=== PATIENT | female | born 1965 | race Caucasian/White ===

== ENCOUNTER → 2017-01-04 | Outpatient (CLI) | payer MEDICAID | LOC: MW.CHFP 15:07 | PROVIDERS: ATTEND Family Medicine | DX: R10.9 Unspecified abdominal pain (principal) | CPT/HCPCS: 81001 ==

== ENCOUNTER → 2017-01-05 | Outpatient (CLI) | payer MEDICAID | LOC: MW.CHFP 13:13 | PROVIDERS: ATTEND Family Medicine | DX: N39.0 Urinary tract infection, site not specified (principal) | CPT/HCPCS: 87086 ==

== ENCOUNTER → 2017-01-07 | Outpatient (CLI) | payer MEDICAID | LOC: MW.CHFP 10:03 | PROVIDERS: ATTEND Family Medicine | DX: N39.0 Urinary tract infection, site not specified (principal); A04.8 Other specified bacterial intestinal infections | CPT/HCPCS: 81001 ==

== ENCOUNTER → 2017-01-13 | Outpatient (CLI) | payer MEDICAID | LOC: MW.CHFP 08:06 | PROVIDERS: ATTEND Family Medicine | DX: A04.8 Other specified bacterial intestinal infections (principal) | CPT/HCPCS: 87338 ==

== ENCOUNTER → 2017-02-09 | Outpatient (CLI) | payer MEDICAID ==
--- NOTE | 2017-02-10 11:17 | MY ---
EXAMINATION: Bilateral digital mammography utilizing CAD. HISTORY: Screening exam. Comparison is made to previous studies dated 11/04/2015. FINDINGS: Bilateral heterogeneously dense breast tissue. No suspicious calcifications, masses or architectural distortions. No pathologic appearing lymph nodes, no abnormal skin thickening or nipple inversion. CAD highlighted regions appear normal at this time. IMPRESSION: BI-RADS category I - negative mammogram. Continued screening according to ACR-ACS guidelines sugg ested. THE FALSE-NEGATIVE RATE OF MAMMOGRAM IS APPROXIMATELY 10%. MANAGEMENT OF A PALPABLE ABNORMALITY MUST BE BASED UPON CLINICAL GROUNDS. SENSITIVITY FOR DETECTION OF ABNORMALITIES IN DENSE BREASTS IS LOW. NOTE: A letter will be sent to the patient regarding findings. [facility] [place] [phone] - FAX [phone]
== END | disposition home or self-care (01) ==
LOC: MW.MAM 13:05
PROVIDERS: ATTEND Obstetrics & Gynecology
DX: Z12.31 Encounter for screening mammogram for malignant neoplasm of breast (principal)
CPT/HCPCS: G0202; G0202-26

== ENCOUNTER 2017-04-16 10:07 | Emergency (ER) | payer MEDICAID ==
--- NOTE | 2017-04-16 10:39 | EDM.PDOC ---
ED HPI GENERAL MEDICAL PROBLEM - General Chief Complaint: ENT Problem Stated Complaint: SORE THROAT Time Seen by Provider: 04/16/17 10:30 Source of Information: Reports: Patient History Limitations: Reports: No Limitations - History of Present Illness INITIAL COMMENTS - FREE TEXT/NARRATIVE: History of present illness: []Patient has had 2 days of sore throat comes in complaining of pus pockets and sore throat with right ear pain. She has no difficulty speaking, swallowing or shortness of breath. Review of systems: As per history of present illness and below otherwise all systems reviewed and negative. Past medical history: As per history of present illness and as reviewed below otherwise noncontributory. Surgical history: As per history of present illness and as reviewed below otherwise noncontributory. Social history: No reported history of drug or alcohol abuse. Family history: As per history of present illness and as reviewed below otherwise noncontributory. Physical exam: General: Well developed, well nourished in NAD HEENT: Atraumatic, normocephalic, pupils reactive, negative for conjunctival pallor or scleral icterus, mucous membranes moist, throat mild erythema with small plaque on the left posterior pharynx, neck supple, 1 cm palpable cervical tender lymph node on the left, trachea midline. TMs are clear Lungs: Clear to auscultation, breath sounds equal bilaterally, chest nontender. Heart: S1S2, regular, negative for clicks, rubs, or JVD. Abdomen: Soft, nondistended, nontender. Negative for masses or hepatosplenomegaly. Negative for costovertebral tenderness. Pelvis: Stable nontender. Genitourinary: Deferred. Rectal: Deferred. Extremities: Atraumatic, negative for cords or calf pain. Neurovascular unremarkable. Neuro: Awake, alert, oriented. Cranial nerves II through XII unremarkable. Cerebellum unremarkable. Motor and sensory unremarkable throughout. Exam nonfocal. Diagnostics: []Rapid strep negative Therapeutics: [] Impression: []Acute pharyngitis Plan: []Motrin, Tylenol or salt water gargles for pain follow-up with pediatric return if symptoms worsen or change Definitive disposition and diagnosis as appropriate pending reevaluation and review of above. Throat Pain Score (Numeric/FACES): 10 - Related Data Allergies Allergy/AdvReac Type Severity Reaction Status Date / Time No Known Allergies Allergy Verified 07/12/16 11:29 Home Meds: Home Meds ClonazePAM [KlonoPIN] 3 mg PO BEDTIME 08/11/15 [History] Omeprazole 40 mg PO DAILY 08/11/15 [History] QUEtiapine [SEROquel] 25 mg PO BID 08/11/15 [History] cloNIDine [Catapres] 0.1 mg PO BID 08/11/15 [History] Dextroamphetamine/Amphetamine [Amphetamine Salts] 25 mg PO DAILY 11/18/15 [ History] Oxybutynin [Oxybutynin ER] 2 tab PO TID 07/12/16 [History] valACYclovir [Valtrex] 2 tab PO ASDIRECTED PRN 07/12/16 [History] ALPRAZolam [Xanax] 1 mg PO BID PRN 11/08/16 [History] Cariprazine Hydrochloride [Vraylar] 3 mg PO ASDIRECTED 11/08/16 [History] Vilazodone [Viibryd] 40 mg PO DAILY 11/08/16 [History] Past Medical History HEENT History: Reports: None Cardiovascular History: Reports: Hypertension Gastrointestinal History: Reports: Other (See Below) Other Gastrointestinal History: "gallbladder problems" Genitourinary History: Reports: Other (See Below) Other Genitourinary History: Frequent UTI's, Overactive Bladder [employer] History: Reports: None Musculoskeletal History: Reports: Back Pain, Chronic Neurological History: Reports: None Psychiatric History: Reports: Anxiety, Bipolar, Depression Endocrine/Metabolic History: Reports: None Hematologic History: Reports: None Immunologic History: Reports: None Oncologic (Cancer) History: Reports: None Dermatologic History: Reports: None - Infectious Disease History Infectious Disease History: Reports: Hepatitis C - Past Surgical History Head Surgeries/Procedures: Reports: None HEENT Surgical History: Reports: Oral Surgery Social & Family History - Family History Family Medical History: Noncontributory - Tobacco Use Smoking Status *Q: Former Smoker Years of Tobacco use: 5 Packs/Tins Daily: 0.5 Used Tobacco, but Quit: Yes Month Tobacco Last Used: February Second Hand Smoke Exposure: No - Caffeine Use Caffeine Use: Reports: Coffee - Recreational Drug Use Recreational Drug Use: No Drug Use in Last 12 Months: No Recreational Drug Type: Reports: Methamphetamine Recreational Drug Use Frequency: Not Used In Over 1 Month ED ROS ENT - Review of Systems Review Of Systems: See Below (See history of present illness) ED EXAM, ENT - Physical Exam Exam: See Below (See history of present illness) Course - Vital Signs Last Recorded V/S: Last Vital Signs Temp 36.2 C 04/16/17 10:20 Pulse 99 04/16/17 10:20 Resp 20 04/16/17 10:20 BP 103/68 04/16/17 10:20 Pulse Ox 97 04/16/17 10:20 - Orders/Labs/Meds Orders: Active Orders 24 hr Category Date Time Status CULTURE STREP A CONFIRMATION [] Stat Lab 04/16/17 10:44 Results STREP SCRN A RAPID W CULT CONF [] Stat Lab 04/16/17 10:44 Results Departure - Departure Time of Disposition: 11:08 Disposition: Home, Self-Care 01 Condition: Good Clinical Impression: Acute pharyngitis Qualifiers: Pharyngitis/tonsillitis etiology: unspecified etiology Qualified Code(s): J02.9 - Acute pharyngitis, unspecified - Discharge Information Referrals: Meme Vasquez MD [Primary Care Provider] - Forms: ED Department Discharge Additional Instructions: The following information is given to patients seen in the emergency department who are being discharged to home. This information is to outline your options for follow-up care. We provide all patients seen in our emergency department with a follow-up referral. The need for follow-up, as well as the timing and circumstances, are variable depending upon the specifics of your emergency department visit. If you don't have a primary care physician on staff, we will provide you with a referral. We always advise you to contact your personal physician following an emergency department visit to inform them of the circumstance of the visit and for follow-up with them and/or the need for any referrals to a consulting specialist. The emergency department will also refer you to a specialist when appropriate. This referral assures that you have the opportunity for follow-up care with a specialist. All of these measure are taken in an effort to provide you with optimal care, which includes your follow-up. Under all circumstances we always encourage you to contact your private physician who remains a resource for coordinating your care. When calling for follow-up care, please make the office aware that this follow-up is from your recent emergency room visit. If for any reason you are refused follow-up, please contact the [facility] at and asked to speak to the emergency department charge nurse. Tylenol Motrin or saltwater gargles for pain, follow-up with PMD return if symptoms worsen or change [facility] [address] [place] [id number] - My Orders Last 24 Hours: My Active Orders 04/16/17 10:44 CULTURE STREP A CONFIRMATION [RM] Stat STREP SCRN A RAPID W CULT CONF [RM] Stat - Assessment/Plan Last 24 Hours: My Active Orders 04/16/17 10:44 CULTURE STREP A CONFIRMATION [RM] Stat STREP SCRN A RAPID W CULT CONF [RM] Stat
[2017-04-16 11:25] VITALS: BP 102/63
== END 2017-04-16 11:18 | disposition home or self-care (01) ==
LOC: MW.ED 10:07
DX: J02.9 Acute pharyngitis, unspecified (principal); F41.9 Anxiety disorder, unspecified; F32.9 Major depressive disorder, single episode, unspecified; I10 Essential (primary) hypertension; Z79.899 Other long term (current) drug therapy; Z87.440 Personal history of urinary (tract) infections; Z87.891 Personal history of nicotine dependence
CPT/HCPCS: 87081; 87880; 99282; 99283

== ENCOUNTER 2017-05-05 07:01 | Day surgery (SDC) | payer MEDICAID ==
[~2017-05-05 07:01] MED LIST: Lactated Ringers 1,000 ML IV SCH; Sodium Chloride 0.9% 10 ML Syringe FLUSH PRN; Sodium Chloride 0.9% 2.5 ML Syringe FLUSH PRN; ceFAZolin 2 GM in Premix Bag 1 BAG IV ONE
[2017-05-05] MEDS ORDERED: Fluorescein 5 ML Vial ONE (07:21)
[2017-05-05] MEDS ORDERED: Octyl 2-Cyanoacrylate 1 Tube ONE (07:21)
[2017-05-05] MEDS ORDERED: Lidocaine 2% 5 ML SDV ONE (07:48)
[2017-05-05] MEDS ORDERED: Propofol 200 MG/20 ML SDV ONE ×2 (07:48→10:13)
[2017-05-05] MEDS ORDERED: fentaNYL 100 MCG/2 ML SDV ONE ×2 (07:49→10:19)
[2017-05-05] MEDS ORDERED: Midazolam 1 MG/ML 2 ML SDV ONE (07:49)
[2017-05-05] MEDS ORDERED: Ketorolac 30 MG/ML SDV ONE (07:56)
[2017-05-05] MEDS ORDERED: Neostigmine Methylsulfate 1 MG/ML 5 ML Syringe ONE (07:56)
[2017-05-05] MEDS ORDERED: Rocuronium 10 MG/ML 10 ML Syringe ONE (07:56)
[2017-05-05] MEDS ORDERED: Ondansetron 4 MG/2 ML SDV ONE (07:56)
--- NOTE | 2017-05-05 08:15 | PCM.PREANE ---
Preanesthetic Assessment - Anesthesia/Transfusion/Family Hx Anesthesia History: Prior Anesthesia Without Reaction (for colonoscopy, no prior GA) Family History of Anesthesia Reaction: No Transfusion History: No Prior Transfusion(s) - Review of Systems General: No Symptoms Pulmonary: No Symptoms Cardiovascular: No Symptoms Gastrointestinal: Abdominal Pain Neurological: No Symptoms Other: Reports: None - Physical Assessment NPO Status Date: 05/04/17 O2 Sat by Pulse Oximetry: 98 Respiratory Rate: 18 Vital Signs: Last Vital Signs Temp 36.1 C 05/05/17 07:27 Pulse 87 05/05/17 07:27 Resp 18 05/05/17 07:27 BP 114/69 05/05/17 07:27 Pulse Ox 98 05/05/17 07:27 Height: 1.68 m Weight: 76.204 kg ASA Class: 3 Mental Status: Alert & Oriented x3 Airway Class: Mallampati = 2 Dentition: Reports: Normal Dentition Lungs: Clear to Auscultation, Normal Respiratory Effort Cardiovascular: Regular Rate, Regular Rhythm - Lab Values: Laboratory Last Values WBC 8.09 K/uL (4.0-11.0) 05/04/17 10:19 RBC 4.29 M/uL (4.30-5.90) L 05/04/17 10:19 Hgb 13.0 g/dL (12.0-16.0) 05/04/17 10:19 Hct 38.7 % (36.0-46.0) 05/04/17 10:19 MCV 90.2 fL (80.0-98.0) 05/04/17 10:19 MCH 30.3 pg (27.0-32.0) 05/04/17 10:19 MCHC 33.6 g/dL (31.0-37.0) 05/04/17 10:19 RDW Std Deviation 45.9 fl (28.0-62.0) 05/04/17 10:19 RDW Coeff of Maya 14 % (11.0-15.0) 05/04/17 10:19 Plt Count 321 K/uL (150-400) 05/04/17 10:19 MPV 10.20 fL (7.40-12.00) 05/04/17 10:19 Nucleated RBC % 0.0 /100WBC 05/04/17 10:19 Nucleated RBCs # 0 K/uL 05/04/17 10:19 Sodium 136 mmol/L (136-146) 05/04/17 10:19 Potassium 3.8 mmol/L (3.5-5.1) 05/04/17 10:19 Chloride 103 mmol/L (98-110) 05/04/17 10:19 Carbon Dioxide 25 mmol/L (21-31) 05/04/17 10:19 BUN 12 mg/dL (6.0-23.0) 05/04/17 10:19 Creatinine 1.2 mg/dL (0.6-1.5) 05/04/17 10:19 Est Cr Clr Drug Dosing 52.50 mL/min 05/04/17 10:19 Estimated GFR (MDRD) 47.6 ml/min 05/04/17 10:19 Glucose 101 mg/dL (60-110) 05/04/17 10:19 Calcium 9.7 mg/dL (8.8-10.8) 05/04/17 10:19 HCG, Qual NEGATIVE (NEG) 05/04/17 10:19 Blood Type O NEGATIVE 05/04/17 10:19 Antibody Screen NEGATIVE 05/04/17 10:19 - Allergies Allergies/Adverse Reactions: Allergies Allergy/AdvReac Type Severity Reaction Status Date / Time No Known Allergies Allergy Verified 05/03/17 12:33 - Anesthesia Plan Pre-Op Medication Ordered: None - Acknowledgements Anesthesia Type Planned: General Anesthesia Pt an Appropriate Candidate for the Planned Anesthesia: Yes Alternatives and Risks of Anesthesia Discussed w Pt/Guardian: Yes Pt/Guardian Understands and Agrees with Anesthesia Plan: Yes Additional Comments: pmh: abd pain, adhd, bipolar, gerd, gout, hx of hep C, Meds: vybrid is a serotonin antianxiety med, vrylar is a antipsychotic med also used for bipolar disorder, No drug interactions except interferance with drug metabolism pathways . PreAnesthesia Questionnaire HEENT History: Other HEENT History: has glasses but doesn't wear them Cardiovascular History: Reports: Hypertension Gastrointestinal History: Reports: Hepatitis Other Gastrointestinal History: HX of Hepatitis C....states was treated and no longer has Genitourinary History: Reports: Other (See Below) Other Genitourinary History: Overactive bladder [employer] History: Reports: None Musculoskeletal History: Reports: Gout Neurological History: Reports: None Psychiatric History: Reports: ADD, Anxiety, Depression, PTSD Endocrine/Metabolic History: Reports: None Hematologic History: Reports: None Immunologic History: Reports: None Oncologic (Cancer) History: Reports: None Dermatologic History: Reports: None - Infectious Disease History Infectious Disease History: Reports: Chicken Pox, Hepatitis C, Herpes - Past Surgical History Head Surgeries/Procedures: Reports: None HEENT Surgical History: Reports: Oral Surgery Other HEENT Surgeries/Procedures: wisdom teeth removed GI Surgical History: Reports: Colonoscopy, EGD Musculoskeletal Surgical History: Reports: None - SUBSTANCE USE Smoking Status *Q: Former Smoker Tobacco Use Within Last Twelve Months: No Second Hand Smoke Exposure: No Recreational Drug Use History: No Recreational Drug Type: Reports: Methamphetamine - HOME MEDS Home Medications: Home Meds Omeprazole 40 mg PO DAILY 08/11/15 [History] cloNIDine [Catapres] 0.2 mg PO BID 08/11/15 [History] Oxybutynin [Oxybutynin ER] 10 mg PO TID 07/12/16 [History] valACYclovir [Valtrex] 1 tab PO ASDIRECTED PRN 07/12/16 [History] ALPRAZolam [Xanax] 1 mg PO DAILY 11/08/16 [History] Vilazodone [Viibryd] 40 mg PO DAILY 11/08/16 [History] Allopurinol [Zyloprim] 300 mg PO DAILY 05/03/17 [History] Cholecalciferol (Vitamin D3) [Vitamin D3] 400 unit PO DAILY 05/03/17 [History] ClonazePAM [KlonoPIN] 1 mg PO TID 05/03/17 [History] Dextroamphetamine/Amphetamine [Adderall] 25 mg PO DAILY 05/03/17 [History] Gluc 2KCl/Chondr/Gerardo Hy/Hy Ac [Glucosamine & Chondroitin Cap] 1 cap PO BID 05/12 [History] L.acidoph,Paracasei, B.lactis [Probiotic] 1 cap PO DAILY 05/03/17 [History] Multivitamin [Multiple Vitamins] 1 tab PO DAILY 05/03/17 [History] Topiramate 25 mg PO BID 05/03/17 [History] Vitamin B Complex 1 cap PO DAILY 05/03/17 [History] - CURRENT (IN HOUSE) MEDS Current Meds: Current Medications Lactated Ringer's (Ringers, Lactated) 1,000 mls @ 125 mls/hr IV ASDIRECTED MIRLANDE Last Admin: 05/05/17 07:34 Dose: 125 mls/hr Sodium Chloride (Saline Flush) 10 ml FLUSH ASDIRECTED PRN PRN Reason: Keep Vein Open Sodium Chloride (Saline Flush) 2.5 ml FLUSH ASDIRECTED PRN PRN Reason: Keep Vein Open Discontinued Medications Fentanyl (Sublimaze) Confirm Administered Dose 300 mcg .ROUTE .STK-MED ONE Stop: 05/05/17 07:50 Fluorescein Sodium (Ak-Fluor) Confirm Administered Dose 5 ml .ROUTE .STK-MED ONE Stop: 05/05/17 07:22 Glycopyrrolate () Confirm Administered Dose 1 mg .ROUTE .STK-MED ONE Stop: 05/05/17 07:57 Cefazolin Sodium/Dextrose 2 gm (/ Premix) 50 mls @ 100 mls/hr IV ONETIME ONE Stop: 05/04/17 09:18 Ketorolac Tromethamine (Toradol) Confirm Administered Dose 30 mg .ROUTE .STK- MED ONE Stop: 05/05/17 07:57 Lidocaine (Xylocaine-Mpf 2%) Confirm Administered Dose 10 ml .ROUTE .STK-MED ONE Stop: 05/05/17 07:49 Midazolam HCl (Versed 1 Mg/Ml) Confirm Administered Dose 2 mg .ROUTE .STK-MED ONE Stop: 05/05/17 07:50 Neostigmine Methylsulfate (Neostigmine) Confirm Administered Dose 5 mg .ROUTE .STK-MED ONE Stop: 05/05/17 07:57 Octyl Cyanoacrylate (Dermabond Advance) Confirm Administered Dose 1 applic .ROUTE .STK-MED ONE Stop: 05/05/17 07:22 Ondansetron HCl (Zofran) Confirm Administered Dose 4 mg .ROUTE .STK-MED ONE Stop: 05/05/17 07:57 Propofol (Diprivan 20 Ml) Confirm Administered Dose 400 mg .ROUTE .STK-MED ONE Stop: 05/05/17 07:49 Rocuronium [place] (Zemuron) Confirm Administered Dose 100 mg .ROUTE .STK-MED ONE Stop: 05/05/17 07:57
[2017-05-05] MEDS ORDERED: HYDROmorphone 2 MG/ML Syringe ONE (09:53)
[2017-05-05] MEDS ORDERED: Furosemide 40 MG/4 ML VIAL ONE (10:18)
[2017-05-05] MEDS ORDERED: HYDROmorphone 2 MG/ML Syringe IVPUSH ONE (10:30)
[2017-05-05] MEDS ORDERED: fentaNYL 100 MCG/2 ML SDV IVPUSH PRN (10:30)
[2017-05-05] MEDS ORDERED: Promethazine 25 MG/ML SDV IM PRN (10:52)
[2017-05-05] MEDS ORDERED: Ketorolac 30 MG/ML SDV IVPUSH PRN (10:52)
--- NOTE | 2017-05-05 10:57 | PCM.OPNOTE ---
- General Post-Op/Procedure Note Date of Surgery/Procedure: 05/05/17 Operative Procedure(s): TLH BSO and cysto. Pre Op Diagnosis: Pelvic pain Post-Op Diagnosis: Same Anesthesia Technique: General ET Tube Primary Surgeon: Delbert Poe Liquor Bridge Operator: Marlene Brown EBL in mLs: 50 Complications: None Condition: Good
[2017-05-05] MEDS ORDERED: Naloxone 0.4 MG/ML Syringe ONE ×2 (11:08→11:13)
--- NOTE | 2017-05-05 12:33 | PCM.POSTAN ---
POST ANESTHESIA ASSESSMENT - MENTAL STATUS Mental Status: Alert, Oriented - RESPIRATORY Respiratory Status: Respiratory Rate WNL, Airway Patent, O2 Saturation Stable - CARDIOVASCULAR CV Status: Pulse Rate WNL, Blood Pressure Stable - GASTROINTESTINAL GI Status: No Symptoms - POST OP HYDRATION Hydration Status: Adequate & Stable
[2017-05-05] MEDS: Morphine 4 MG/ML Syringe IVPUSH PRN ×4 (13:00→23:55)
[2017-05-05] MEDS: Ondansetron 4 MG/2 ML SDV IVPUSH PRN ×2 (13:04→20:16)
[2017-05-05] MEDS: Acetaminophen/oxyCODONE 325-5 MG Tab PO PRN ×2 (14:57→19:15)
--- NOTE | 2017-05-05 15:12 | OR ---
SURGEON: Delbert Poe MD DATE OF PROCEDURE: PREOPERATIVE DIAGNOSIS: Pelvic pain. POSTOPERATIVE DIAGNOSIS: Pelvic pain plus pelvic adhesion and fibroid uterus. OPERATION PERFORMED: Multiple puncture, diagnostic laparoscopy, lysis of adhesion, total laparoscopic hysterectomy, laparoscopic bilateral salpingo-oophorectomy, and cystoscopy. FLIGHT PARAMEDIC: KARLA Arenas. ANESTHESIA: General endotracheal intubation, Joseluis Prasad and Dr. An. ESTIMATED BLOOD LOSS: Less than 50 mL. COMPLICATIONS: None. FINDING: The patient has pelvic adhesion between the sigmoid colon and the pelvic sidewall and around the left tubes and ovary. She have multiple fibroid uterus, the largest one was 5 cm which is in the anterior wall. INDICATION: [place] refer to the admit note. PROCEDURE IN DETAIL: The patient was brought to the OR and after adequate general anesthesia and after doing time-out and identifying the patient, the patient was placed in lithotomy position, prepped and draped in sterile fashion as usual. P[place] catheter inserted in the bladder and the [employer] colpotomizer and uterine manipulator was placed and then the operation shifted abdominally. Stab wound done beneath the umbilicus. The Veress needle was placed in the peritoneal cavity and that cavity insufflated 3.5 L of carbon dioxide and a 5-mm trocar entered beneath the umbilicus utilizing the Visiport technique. Once we are in, I explored the abdomen with the laparoscope and made multiple pictures to document the pathology. Next, a 10-12 trocar was placed in the left iliac fossa and 5-mm trocar in the right iliac fossa. The operation was started by using the CHITO-7 Harmonic scalpel and taking down the adhesion from the anterior abdominal wall and the left pelvic sidewall with from the sigmoid colon which was also wrapped around the left ovary restoring normal anatomy. Once these were done, then we proceeded with the hysterectomy and bilateral salpingo- oophorectomy and that started by identifying the landmark of the pelvis and making sure the ureter was away from harm's way. The superior pedicle coagulated, transected with the CHITO-7 Harmonic scalpel from both side and then the anterior leaf of the broad ligament dissected downward medially. The bladder flap was raised pushing the bladder completely away from the cervical, the uterus and at that time, I can feel clearly the ring from the manipulator. The uterine vessel was skeletonized at the level of the internal ring of the manipulator and then this uterine vessel coagulated, transecting using the [place] Harmonic scalpel. Then, the vagina entered anteriorly and in a circular manner, the vaginal cuff incised around the tip of the manipulator detaching the cervix from its attachment to the vagina. Then, the uterus and the cervix removed vaginally. Then, the vaginal pack was placed in the vagina to restore pneumoperitoneum and then thorough irrigation of the pelvis shows no oozing, no bleeding. All the pedicle seems to be fine. Then, I proceeded to close the vaginal cuff laparoscopically using 2-0 PDS interrupted. While we were doing that, we asked the anesthesiologist to give the patient fluorescein and then after closing the vaginal cuff and deflating the abdomen and evacuating all the air from the peritoneal cavity, the Paniagua catheter was removed and cystoscopy was performed. The bladder was intact. Both ureteric orifices were seen with the dye coming from both of them, thus the patency of both ureters verified, satisfied with these findings. The multiple laparoscopic incisions were closed in layers. Then, the procedure ended. The instrument and sponge count was correct. The patient tolerated the procedure well, went to recovery room in stable general condition. SEAN / PILI /[id number]
[2017-05-06 05:28] LABS: CHLORIDE,CL 102 mmol/L (98-110); SODIUM,NA 137 mmol/L (136-146)
[2017-05-06] MEDS: Acetaminophen/oxyCODONE 325-5 MG Tab PO PRN (07:31)
[2017-05-06 07:51] VITALS: BP 126/89
[2017-05-06] MEDS: Ondansetron 4 MG/2 ML SDV IVPUSH PRN (07:52)
--- NOTE | 2017-05-06 09:04 | PCM.SURGPN ---
- General Info Date of Service: 05/06/17 POD#: 1 Functional Status: Reports: Pain Controlled - Review of Systems General: Reports: No Symptoms HEENT: Reports: No Symptoms Pulmonary: Reports: No Symptoms Cardiovascular: Reports: No Symptoms Gastrointestinal: Reports: No Symptoms Genitourinary: Reports: No Symptoms Musculoskeletal: Reports: No Symptoms Skin: Reports: No Symptoms Neurological: Reports: No Symptoms Psychiatric: Reports: No Symptoms - Patient Data Vitals - Most Recent: Last Vital Signs Temp 37.2 C 05/06/17 07:50 Pulse 84 05/06/17 07:50 Resp 19 05/06/17 07:50 BP 126/89 05/06/17 07:50 Pulse Ox 94 L 05/06/17 07:50 Weight - Most Recent: 76.204 kg I&O - Last 24 Hours: Intake & Output 05/05/17 05/06/17 05/06/17 22:59 06:59 14:59 Intake Total 2200 900 Output Total 300 600 Balance 1900 300 Lab Results Last 24 Hrs: Laboratory Results - last 24 hr 05/06/17 05/06/17 Range/Units 04:50 04:50 WBC 14.99 H (4.0-11.0) K/uL RBC 3.84 L (4.30-5.90) M/uL Hgb 11.4 L (12.0-16.0) g/dL Hct 35.4 L (36.0-46.0) % MCV 92.2 (80.0-98.0) fL MCH 29.7 (27.0-32.0) pg MCHC 32.2 (31.0-37.0) g/dL RDW Std Deviation 47.3 (28.0-62.0) fl RDW Coeff of Maya 14 (11.0-15.0) % Plt Count 269 (150-400) K/uL MPV 10.10 (7.40-12.00) fL Neut % (Auto) 80.7 H (48.0-80.0) % Lymph % (Auto) 11.5 L (16.0-40.0) % [place] % (Auto) 7.2 (0.0-15.0) % Eos % (Auto) 0.5 (0.0-7.0) % Baso % (Auto) 0.1 (0.0-1.5) % Neut # (Auto) 12.1 H (1.4-5.7) K/uL Lymph # (Auto) 1.7 (0.6-2.4) K/uL [place] # (Auto) 1.1 H (0.0-0.8) K/uL Eos # (Auto) 0.1 (0.0-0.7) K/uL Baso # (Auto) 0.0 (0.0-0.1) K/uL Nucleated RBC % 0.0 /100WBC Nucleated RBCs # 0 K/uL Sodium 137 (136-146) mmol/L Potassium 4.1 (3.5-5.1) mmol/L Chloride 102 (98-110) mmol/L Carbon Dioxide 28 (21-31) mmol/L BUN 10 (6.0-23.0) mg/dL Creatinine 0.8 (0.6-1.5) mg/dL Est Cr Clr Drug Dosing 78.76 mL/min Estimated GFR (MDRD) > 60.0 ml/min Glucose 103 (60-110) mg/dL Calcium 7.9 L (8.8-10.8) mg/dL Med Orders - Current: Current Medications Fentanyl (Sublimaze) 50 mcg IVPUSH Q5M PRN PRN Reason: Pain (severe 7-10) Stop: 05/06/17 10:30 Last Admin: 05/05/17 12:09 Dose: 50 mcg Lactated Ringer's (Ringers, Lactated) 1,000 mls @ 125 mls/hr IV ASDIRECTED [facility] Last Admin: 05/05/17 07:34 Dose: 125 mls/hr Ketorolac Tromethamine (Toradol) 30 mg IVPUSH Q6H PRN PRN Reason: Pain (severe 7-10) Stop: 05/10/17 10:52 Morphine Sulfate (Morphine) 4 mg IVPUSH Q2H PRN PRN Reason: Pain (severe 7-10) Last Admin: 05/05/17 23:55 Dose: 4 mg Ondansetron HCl (Zofran) 4 mg IVPUSH Q6H PRN PRN Reason: Nausea/Vomiting Last Admin: 05/06/17 07:52 Dose: 4 mg Oxycodone/Acetaminophen (Percocet 325-5 Mg) 2 tab PO Q4H PRN PRN Reason: Pain (moderate 4-6) Last Admin: 05/06/17 07:31 Dose: 2 tab Promethazine HCl (Phenergan) 25 mg IM Q6H PRN PRN Reason: Nausea/Vomiting Sodium Chloride (Saline Flush) 10 ml FLUSH ASDIRECTED PRN PRN Reason: Keep Vein Open Sodium Chloride (Saline Flush) 2.5 ml FLUSH ASDIRECTED PRN PRN Reason: Keep Vein Open Discontinued Medications Fentanyl (Sublimaze) Confirm Administered Dose 300 mcg .ROUTE .STK-MED ONE Stop: 05/05/17 07:50 Fentanyl (Sublimaze) Confirm Administered Dose 100 mcg .ROUTE .STK-MED ONE Stop: 05/05/17 10:20 Fluorescein Sodium (Ak-Fluor) Confirm Administered Dose 5 ml .ROUTE .STK-MED ONE Stop: 05/05/17 07:22 Furosemide (Lasix) Confirm Administered Dose 40 mg .ROUTE .STK-MED ONE Stop: 05/05/17 10:19 Glycopyrrolate () Confirm Administered Dose 1 mg .ROUTE .STK-MED ONE Stop: 05/05/17 07:57 Hydromorphone HCl (Dilaudid) Confirm Administered Dose 2 mg .ROUTE .STK-MED ONE Stop: 05/05/17 09:54 Hydromorphone HCl (Dilaudid) 0 mg IVPUSH ONETIME ONE Stop: 05/05/17 10:31 Last Admin: 05/05/17 13:56 Dose: Not Given Cefazolin Sodium/Dextrose 2 gm (/ Premix) 50 mls @ 100 mls/hr IV ONETIME ONE Stop: 05/04/17 09:18 Last Admin: 05/05/17 13:57 Dose: Not Given Ketorolac Tromethamine (Toradol) Confirm Administered Dose 30 mg .ROUTE .STK- MED ONE Stop: 05/05/17 07:57 Lidocaine (Xylocaine-Mpf 2%) Confirm Administered Dose 10 ml .ROUTE .STK-MED ONE Stop: 05/05/17 07:49 Midazolam HCl (Versed 1 Mg/Ml) Confirm Administered Dose 2 mg .ROUTE .STK-MED ONE Stop: 05/05/17 07:50 Naloxone HCl (Narcan) Confirm Administered Dose 0.4 mg .ROUTE .STK-MED ONE Stop: 05/05/17 11:09 Naloxone HCl (Narcan) Confirm Administered Dose 0.4 mg .ROUTE .STK-MED ONE Stop: 05/05/17 11:14 Neostigmine Methylsulfate (Neostigmine) Confirm Administered Dose 5 mg .ROUTE .STK-MED ONE Stop: 05/05/17 07:57 Octyl Cyanoacrylate (Dermabond Advance) Confirm Administered Dose 1 applic .ROUTE .STK-MED ONE Stop: 05/05/17 07:22 Ondansetron HCl (Zofran) Confirm Administered Dose 4 mg .ROUTE .STK-MED ONE Stop: 05/05/17 07:57 Propofol (Diprivan 20 Ml) Confirm Administered Dose 400 mg .ROUTE .STK-MED ONE Stop: 05/05/17 07:49 Propofol (Diprivan 20 Ml) Confirm Administered Dose 200 mg .ROUTE .STK-MED ONE Stop: 05/05/17 10:14 Rocuronium [place] (Zemuron) Confirm Administered Dose 100 mg .ROUTE .STK-MED ONE Stop: 05/05/17 07:57 - Exam Wound/Incisions: Healing Well General: Alert, Oriented HEENT: Pupils Equal Neck: Supple Lungs: Clear to Auscultation, Normal Respiratory Effort Cardiovascular: Regular Rate, Regular Rhythm GI/Abdominal Exam: Normal Bowel Sounds, Soft, Non-Tender, No Organomegaly, No Distention, No Abnormal Bruit, No Mass, Pelvis Stable Extremities: Normal Inspection, Normal Range of Motion, Non-Tender, No Pedal Edema, Normal Capillary Refill Skin: Warm, Dry, Intact Neurological: No New Focal Deficit Psy/Mental Status: Alert, Normal Affect, Normal Mood - Problem List Review Problem List Initiated/Reviewed/Updated: Yes - My Orders Last 24 Hours: Active Orders 24 hr Category Date Time Status Patient Status [ADT] Routine ADT 05/05/17 10:52 Active Antiembolic Devices [RC] PER UNIT ROUTINE Care 05/05/17 10:52 Active Communication Order [RC] ROUTINE Care 05/05/17 15:20 Active Notify Provider Vital Signs [RC] ASDIRECTED Care 05/05/17 10:52 Active Oxygen Therapy [RC] ASDIRECTED Care 05/05/17 10:52 Active RT Incentive Spirometry [RC] Q2HWA Care 05/05/17 10:52 Active Up With Assistance [RC] PER UNIT ROUTINE Care 05/05/17 10:52 Active Up ad Olesya [RC] PER UNIT ROUTINE Care 05/05/17 10:52 Active Vital Signs [RC] PER UNIT ROUTINE Care 05/05/17 10:52 Active Regular Diet [DIET] Diet 05/05/17 Lunch Active Acetaminophen/oxyCODONE [Percocet 325-5 MG] Med 05/05/17 10:52 Active 2 tab PO Q4H PRN Ketorolac [Toradol] Med 05/05/17 10:52 Active 30 mg IVPUSH Q6H PRN Morphine Med 05/05/17 10:52 Active 4 mg IVPUSH Q2H PRN Ondansetron [Zofran] Med 05/05/17 10:52 Active 4 mg IVPUSH Q6H PRN Promethazine [Phenergan] Med 05/05/17 10:52 Active 25 mg IM Q6H PRN fentaNYL [Sublimaze] Med 05/05/17 10:30 Active 50 mcg IVPUSH Q5M PRN Peripheral IV Discontinue [OM.PC] Routine Oth 05/05/17 10:52 Ordered Sequential Compression Device [OM.PC] Per Unit Routine Oth 05/05/17 10:52 Ordered Resuscitation Status Routine Resus Stat 05/05/17 10:52 Ordered Medication Orders Fentanyl (Sublimaze) 50 mcg IVPUSH Q5M PRN PRN Reason: Pain (severe 7-10) Stop: 05/06/17 10:30 Last Admin: 05/05/17 12:09 Dose: 50 mcg Lactated Ringer's (Ringers, Lactated) 1,000 mls @ 125 mls/hr IV ASDIRECTED [facility] Last Admin: 05/05/17 07:34 Dose: 125 mls/hr Ketorolac Tromethamine (Toradol) 30 mg IVPUSH Q6H PRN PRN Reason: Pain (severe 7-10) Stop: 05/10/17 10:52 Morphine Sulfate (Morphine) 4 mg IVPUSH Q2H PRN PRN Reason: Pain (severe 7-10) Last Admin: 05/05/17 23:55 Dose: 4 mg Admin: 05/05/17 20:19 Dose: 4 mg Admin: 05/05/17 16:14 Dose: 4 mg Admin: 05/05/17 13:00 Dose: 4 mg Ondansetron HCl (Zofran) 4 mg IVPUSH Q6H PRN PRN Reason: Nausea/Vomiting Last Admin: 05/06/17 07:52 Dose: 4 mg Admin: 05/05/17 20:16 Dose: 4 mg Admin: 05/05/17 13:04 Dose: 4 mg Oxycodone/Acetaminophen (Percocet 325-5 Mg) 2 tab PO Q4H PRN PRN Reason: Pain (moderate 4-6) Last Admin: 05/06/17 07:31 Dose: 2 tab Admin: 05/05/17 19:15 Dose: 2 tab Admin: 05/05/17 14:57 Dose: 2 tab Promethazine HCl (Phenergan) 25 mg IM Q6H PRN PRN Reason: Nausea/Vomiting Sodium Chloride (Saline Flush) 10 ml FLUSH ASDIRECTED PRN PRN Reason: Keep Vein Open Sodium Chloride (Saline Flush) 2.5 ml FLUSH ASDIRECTED PRN PRN Reason: Keep Vein Open - Assessment Assessment (Free Text/Narrative):: Status post total laparoscopic hysterectomy and bilateral salpingo-oophorectomy today postoperative day #1 is doing well he had no fever arrival is normal no bleeding and she is tolerating food normally - Plan Plan (Free Text/Narrative):: I'm sending this patient home today in the postvasectomy instruction is given to the patient at prescription for Percocet 7.5/325 for postoperative pain is given and patient is already have an appointment to see me in the office in 1 week
--- NOTE | 2017-05-06 23:18 | PCM48HPAN ---
Post Anesthesia Note - EVALUATION WITHIN 48HRS OF ANESTHETIC Vital Signs in Normal Range: Yes Patient Participated in Evaluation: Yes Respiratory Function Stable: Yes Airway Patent: Yes Cardiovascular Function Stable: Yes Hydration Status Stable: Yes Pain Control Satisfactory: Yes Nausea and Vomiting Control Satisfactory: Yes Mental Status Recovered: Yes
== END 2017-05-06 09:46 | disposition home or self-care (01) ==
LOC: MW.SDS 07:01 → MW.MS 12:31 → MW.SDS 05-06 09:46
PROVIDERS: ATTEND Obstetrics & Gynecology
PROC: 0UT94ZZ Resection of Uterus, Percutaneous Endoscopic Approach (ICD-10-PCS; principal; 2017-05-05)
PROC: 0UTC4ZZ Resection of Cervix, Percutaneous Endoscopic Approach (ICD-10-PCS; 2017-05-05)
PROC: 0UT24ZZ Resection of Bilateral Ovaries, Percutaneous Endoscopic Approach (ICD-10-PCS; 2017-05-05)
PROC: 0UT74ZZ Resection of Bilateral Fallopian Tubes, Percutaneous Endoscopic Approach (ICD-10-PCS; 2017-05-05)
DX: D25.9 Leiomyoma of uterus, unspecified (principal); N80.0 Endometriosis of uterus; N73.6 Female pelvic peritoneal adhesions (postinfective); F41.9 Anxiety disorder, unspecified; F31.9 Bipolar disorder, unspecified; M17.11 Unilateral primary osteoarthritis, right knee; K21.9 Gastro-esophageal reflux disease without esophagitis; A60.00 Herpesviral infection of urogenital system, unspecified; M10.9 Gout, unspecified; N39.0 Urinary tract infection, site not specified; N39.41 Urge incontinence; I10 Essential (primary) hypertension; Z79.2 Long term (current) use of antibiotics; Z79.899 Other long term (current) drug therapy; Z98.890 Other specified postprocedural states; Z86.19 Personal history of other infectious and parasitic diseases; Z87.891 Personal history of nicotine dependence; Z68.26 Body mass index [BMI] 26.0-26.9, adult
CPT/HCPCS: 36415; 58571; 80048; 84703; 85025; 85027; 86707; 86803; 86850; 86900; 86901; 87340; A9270; J0690; J1170; J1885; J1940; J2250; J2270; J2405; J3010; J7120; 00840; 88309; J2704

== ENCOUNTER 2017-05-12 19:51 | Emergency (ER) | payer MEDICAID ==
--- NOTE | 2017-05-12 20:39 | EDM.PDOC ---
ED HPI GENERAL MEDICAL PROBLEM - General Chief Complaint: INSOLE BEVELER Problem Stated Complaint: CONCERNING BLEEDING FROM HYSTERECTOMY Time Seen by Provider: 05/12/17 20:18 Source of Information: Reports: Patient History Limitations: Reports: No Limitations - History of Present Illness INITIAL COMMENTS - FREE TEXT/NARRATIVE: History and physical: 51-year-old female patient presents with postoperative bleeding History of present illness: Patient had a hysterectomy 8 days ago today about 1 hour prior to coming to the emergency department patient use the bathroom and had blood on her underpants and on the tissue she wiped with. She states this was bright red blood Her physician is Dr. Poe She has an appointment with Dr. Poe tomorrow Surgical history: As documented in the chart Family history: Multiple family members with endometriosis hysterectomy at age of 51 Review of systems: Non-contributory No other concerns were noted when asked HEENT: Unremarkable Chest: Denies any shortness of breath or palpitations chest pain Abdomen: Tenderness related to the surgery Extremities: Noncontributory no difficulties Physical examination: Well-developed well-nourished woman 51 years old who answers questions appropriately skin is warm and dry. She speaks in full sentences without any shortness of breath. HEENT: Head normocephalic sinuses nontender tympanic membranes without erythema for next nonerythematous physical exam the neck is supple Chest: Clear to auscultation good inspiratory extra effort heart rate is rhythmical normal S1-S2 Abdomen: Soft mild tenderness upon palpation normal active bowel sounds throughout 4 quadrants no rebound very slight guarding with palpation. Healing surgical scars present. Genitourinary: Pressure applied to lower pelvis absorbing no bleeding was noted to the vaginal os. Extremities: No peripheral edema moving all extremities well. Range of motion intact > no pain on palpation. Pulses are intact Neurological: No gross abnormalities. Sensation is intact was notified of this patient being in the emergency room. He requested that no lab work the obtained. He wished for patient to see him in the clinic tomorrow as she is not actively bleeding at this time. Diagnostic: None Intervention: None Impression: Post surgical spotting Plan: See in his clinic tomorrow as scheduled Prescription written for Dilaudid 1 mg 1 by mouth twice a day when necessary pain #4 tablets no refill. Onset: Today, Sudden Duration: Minutes: Location: Reports: Pelvis - Related Data Allergies Allergy/AdvReac Type Severity Reaction Status Date / Time No Known Allergies Allergy Verified 05/03/17 12:33 Home Meds: Home Meds Omeprazole 40 mg PO DAILY 08/11/15 [History] cloNIDine [Catapres] 0.2 mg PO BID 08/11/15 [History] Oxybutynin [Oxybutynin ER] 10 mg PO TID 07/12/16 [History] valACYclovir [Valtrex] 1 tab PO ASDIRECTED PRN 07/12/16 [History] ALPRAZolam [Xanax] 1 mg PO DAILY 11/08/16 [History] Vilazodone [Viibryd] 40 mg PO DAILY 11/08/16 [History] Allopurinol [Zyloprim] 300 mg PO DAILY 05/03/17 [History] Cholecalciferol (Vitamin D3) [Vitamin D3] 400 unit PO DAILY 05/03/17 [History] ClonazePAM [KlonoPIN] 1 mg PO TID 05/03/17 [History] Dextroamphetamine/Amphetamine [Adderall] 25 mg PO DAILY 05/03/17 [History] Gluc 2KCl/Chondr/Gerardo Hy/Hy Ac [Glucosamine & Chondroitin Cap] 1 cap PO BID 05/12 [History] L.acidoph,Paracasei, B.lactis [Probiotic] 1 cap PO DAILY 05/03/17 [History] Multivitamin [Multiple Vitamins] 1 tab PO DAILY 05/03/17 [History] Topiramate 25 mg PO BID 05/03/17 [History] Vitamin B Complex 1 cap PO DAILY 05/03/17 [History] Past Medical History HEENT History: Other HEENT History: has glasses but doesn't wear them Cardiovascular History: Reports: Hypertension Gastrointestinal History: Reports: Hepatitis Other Gastrointestinal History: HX of Hepatitis C....states was treated and no longer has Genitourinary History: Reports: Other (See Below) Other Genitourinary History: Overactive bladder INSOLE BEVELER History: Reports: None Musculoskeletal History: Reports: Gout Neurological History: Reports: None Psychiatric History: Reports: ADD, Anxiety, Depression, PTSD Endocrine/Metabolic History: Reports: None Hematologic History: Reports: None Immunologic History: Reports: None Oncologic (Cancer) History: Reports: None Dermatologic History: Reports: None - Infectious Disease History Infectious Disease History: Reports: Chicken Pox, Hepatitis C, Herpes - Past Surgical History Head Surgeries/Procedures: Reports: None HEENT Surgical History: Reports: Oral Surgery Other HEENT Surgeries/Procedures: wisdom teeth removed GI Surgical History: Reports: Colonoscopy, EGD Musculoskeletal Surgical History: Reports: None Social & Family History - Family History Family Medical History: Noncontributory - Tobacco Use Smoking Status *Q: Former Smoker Years of Tobacco use: 5 Packs/Tins Daily: 0.5 Used Tobacco, but Quit: Yes Month Tobacco Last Used: 04/2015 Second Hand Smoke Exposure: No - Caffeine Use Caffeine Use: Reports: Coffee - Recreational Drug Use Recreational Drug Use: No Drug Use in Last 12 Months: No Recreational Drug Type: Reports: Methamphetamine Recreational Drug Use Frequency: Not Used In Over 1 Month ED ROS GENERAL - Review of Systems Review Of Systems: ROS reveals no pertinent complaints other than HPI. ED EXAM, GI/ABD - Physical Exam Exam: See Below (see dictation) Departure - Departure Time of Disposition: 20:39 Disposition: Home, Self-Care 01 Condition: Good Clinical Impression: Vaginal spotting - Discharge Information Instructions: Pain Medicine Instructions, [id number] Forms: ED Department Discharge Additional Instructions: During your visit to the emergency room no active bleeding was noted. Your physician had been notified of your emergency room visit. Please keep your appointment with your doctor tomorrow. Written a prescription for Dilaudid has been completed no refill will be given
[2017-05-12 21:04] VITALS: BP 135/83
== END 2017-05-12 21:02 | disposition home or self-care (01) ==
LOC: MW.ED 19:51
DX: N99.820 Postprocedural hemorrhage of a genitourinary system organ or structure following a genitourinary system procedure (principal); I10 Essential (primary) hypertension; F41.9 Anxiety disorder, unspecified; F32.9 Major depressive disorder, single episode, unspecified; Z90.710 Acquired absence of both cervix and uterus; Z79.899 Other long term (current) drug therapy; Z87.891 Personal history of nicotine dependence; Z98.890 Other specified postprocedural states
CPT/HCPCS: 99283; 99284

== ENCOUNTER 2017-08-06 17:13 | Emergency (ER) | payer MEDICAID ==
[2017-08-06] MEDS ORDERED: OLANZapine 10 MG in Water For Injection, Sterile 2.1 ML IM ONE (17:32)
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
[2017-08-06 18:13] LABS: ACETAMINOPHEN 6.2 ug/mL; CHLORIDE,CL 103 mmol/L (98-110); SODIUM,NA 135 mmol/L (136-146)
[2017-08-06 19:54] VITALS: BP 97/56
== END 2017-08-06 19:35 ==
LOC: MW.ED 17:13
DX: R45.851 Suicidal ideations (principal); F31.9 Bipolar disorder, unspecified; F25.9 Schizoaffective disorder, unspecified; F20.9 Schizophrenia, unspecified; I10 Essential (primary) hypertension; Z88.5 Allergy status to narcotic agent; Z88.6 Allergy status to analgesic agent; Z79.899 Other long term (current) drug therapy; Z87.891 Personal history of nicotine dependence
CPT/HCPCS: 80053; 80305; 81001; 81025; 83735; 84443; 84481; 85025; 93005; 96372; 99285; G0480; 36415; 99283

== ENCOUNTER 2017-12-04 13:32 | Emergency (ER) | payer MEDICAID ==
--- NOTE | 2017-12-04 13:58 | EDM.PDOC ---
ED HPI GENERAL MEDICAL PROBLEM - General Stated Complaint: STOMACH PAIN Time Seen by Provider: 12/04/17 13:48 Source of Information: Reports: Patient History Limitations: Reports: No Limitations - History of Present Illness INITIAL COMMENTS - FREE TEXT/NARRATIVE: HISTORY AND PHYSICAL: []52-year-old female presenting with concerns over left-sided abdominal pain and bloating History of Present Illness: []Patient has history of pancreatitis and she has been drinking a couple beverages daily for the last 2 weeks Review of Systems: As per history of present illness and below otherwise all systems reviewed and negative. Past medical history: As per history of present illness and as reviewed below otherwise noncontributory. Surgical history: As per history of present illness and as reviewed below otherwise noncontributory. Social history: No reported history of drug or alcohol abuse. Family history: As per history of present illness and as reviewed below otherwise noncontributory. Physical exam: Alert and oriented female lack pain age-appropriate she has been able to answer questions in full sentences without any shortness of breath. Skin is clammy HEENT: Atraumatic, normocehpalic, pupils reactive, negative for conjunctival pallor or scleral icterus, mucous membranes moist, throat clear, neck supple, nontender, trachea midline. Lungs: Clear to auscultation, breath sounds equal bilaterally, chest non tender. Heart: S1S2, regular, negative for clicks, rubs, or JVD. Abdomen: Soft, nondistended, nontender. Negative for masses or hepatossplenmegaly. Negative for costovertebral tenderness. Pelvis: Stable nontender. Genitourinary: Deferred. Rectal: Deferred Extremities: Atraumatic, negative for cords or calf pain. Neurovascular unremarkable. Neuro: Awake, alert, oriented. Cranial nerves II through XII unremarkable. Cerebellum unremarkable. Motor and sensory unremarkable throughout. Exam nonfocal. Diagnostics: []CBC CMP amylase lipase EKG Therapeutics: []IV normal saline Zofran IV Dilaudid 0.5 IM Impression: [Urinary tract infection] Plan: []Discharged to home Discharge for Cipro 500 mg twice daily 5 days has been sent to your pharmacy Follow-up with your primary care provider next week Definitive disposition and diagnosis as appropriate pending reevaluation and review of above. Onset: Gradual Duration: Day(s):, Getting Worse Location: Reports: Abdomen Quality: Reports: Ache Severity: Mild Improves with: Reports: None Worsens with: Reports: None Right Upper Abdomen Pain Score (Numeric/FACES): 10 - Related Data Allergies Allergy/AdvReac Type Severity Reaction Status Date / Time hydrocodone Allergy Itching Verified 12/04/17 14:04 ketorolac [From Toradol] Allergy Swelling Verified 12/04/17 14:04 Home Meds: Home Meds ALPRAZolam [Alprazolam] 1 - 1.5 tab PO BEDTIME PRN 08/06/17 [History] ClonazePAM [KlonoPIN] 1 tab PO TID PRN 08/06/17 [History] Lisdexamfetamine Dimesylate [Vyvanse] 40 mg PO DAILY 08/06/17 [History] Omeprazole 40 mg PO DAILY 08/06/17 [History] Oxybutynin 2 tab PO TID 08/06/17 [History] Topiramate 50 mg PO BID 08/06/17 [History] chlorproMAZINE 1 tab PO BID 08/06/17 [History] cloNIDine [Catapres] 0.1 mg PO BID 08/06/17 [History] valACYclovir [Valtrex] 2 tab PO DAILY PRN 08/06/17 [History] Ciprofloxacin HCl [Cipro] 500 mg PO BID #10 tablet 12/04/17 [Rx] Past Medical History HEENT History: Other HEENT History: has glasses but doesn't wear them Cardiovascular History: Reports: Hypertension Respiratory History: Reports: None Gastrointestinal History: Reports: Hepatitis Other Gastrointestinal History: HX of Hepatitis C....states was treated and no longer has Genitourinary History: Reports: Other (See Below) Other Genitourinary History: Overactive bladder FREIGHT REPRESENTATIVE History: Reports: None Musculoskeletal History: Reports: Gout Neurological History: Reports: None Psychiatric History: Reports: ADD, Anxiety, Depression, PTSD Endocrine/Metabolic History: Reports: None Hematologic History: Reports: None Immunologic History: Reports: None Oncologic (Cancer) History: Reports: None Dermatologic History: Reports: None - Infectious Disease History Infectious Disease History: Reports: Chicken Pox, Hepatitis C, Herpes - Past Surgical History Head Surgeries/Procedures: Reports: None HEENT Surgical History: Reports: Oral Surgery Other HEENT Surgeries/Procedures: wisdom teeth removed GI Surgical History: Reports: Colonoscopy, EGD Musculoskeletal Surgical History: Reports: None Social & Family History - Family History Family Medical History: Noncontributory - Tobacco Use Smoking Status *Q: Former Smoker Years of Tobacco use: 5 Packs/Tins Daily: 0.5 Used Tobacco, but Quit: Yes Month Tobacco Last Used: 04/2015 Second Hand Smoke Exposure: No - Caffeine Use Caffeine Use: Reports: Coffee - Recreational Drug Use Recreational Drug Use: No Drug Use in Last 12 Months: No Recreational Drug Type: Reports: Methamphetamine Recreational Drug Use Frequency: Not Used In Over 1 Month ED ROS GENERAL - Review of Systems Review Of Systems: ROS reveals no pertinent complaints other than HPI. ED EXAM, GENERAL - Physical Exam Exam: See Below (see dictation) Course - Vital Signs Last Recorded V/S: Last Vital Signs Temp 37.3 C 12/04/17 14:30 Pulse 93 12/04/17 14:30 Resp 20 12/04/17 14:02 BP 116/81 12/04/17 14:30 Pulse Ox 16 L 12/04/17 14:30 - Orders/Labs/Meds Orders: Active Orders 24 hr Category Date Time Status EKG Documentation Completion [RC] STAT Care 12/04/17 14:10 Active Abdomen Pelvis w Cont [CT] Stat Exams 12/04/17 14:11 Taken CULTURE URINE [RM] Stat Lab 12/04/17 15:20 Received Sodium Chloride 0.9% [Saline Flush] Med 12/04/17 14:10 Active 10 ml FLUSH ASDIRECTED PRN Sodium Chloride 0.9% [Saline Flush] Med 12/04/17 14:10 Active 2.5 ml FLUSH ASDIRECTED PRN Saline Lock Insert [OM.PC] Stat Oth 12/04/17 14:10 Ordered Medication Orders Sodium Chloride (Saline Flush) 10 ml FLUSH ASDIRECTED PRN PRN Reason: Keep Vein Open Sodium Chloride (Saline Flush) 2.5 ml FLUSH ASDIRECTED PRN PRN Reason: Keep Vein Open Labs: Laboratory Tests 12/04/17 12/04/17 12/04/17 Range/Units 14:18 14:18 15:20 WBC 11.14 H (4.0-11.0) K/uL RBC 4.37 (4.30-5.90) M/uL Hgb 14.0 (12.0-16.0) g/dL Hct 40.8 (36.0-46.0) % MCV 93.4 (80.0-98.0) fL MCH 32.0 (27.0-32.0) pg MCHC 34.3 (31.0-37.0) g/dL RDW Std Deviation 44.7 (28.0-62.0) fl RDW Coeff of Maya 13 (11.0-15.0) % Plt Count 294 (150-400) K/uL MPV 9.90 (7.40-12.00) fL Neut % (Auto) 69.5 (48.0-80.0) % Lymph % (Auto) 21.1 (16.0-40.0) % [place] % (Auto) 8.7 (0.0-15.0) % Eos % (Auto) 0.4 (0.0-7.0) % Baso % (Auto) 0.3 (0.0-1.5) % Neut # (Auto) 7.7 H (1.4-5.7) K/uL Lymph # (Auto) 2.4 (0.6-2.4) K/uL [place] # (Auto) 1.0 H (0.0-0.8) K/uL Eos # (Auto) 0.1 (0.0-0.7) K/uL Baso # (Auto) 0.0 (0.0-0.1) K/uL Nucleated RBC % 0.0 /100WBC Nucleated RBCs # 0 K/uL Sodium 139 (136-145) mmol/L Potassium 3.3 L (3.5-5.1) mmol/L Chloride 98 (98-107) mmol/L Carbon Dioxide 28.7 (21.0-32.0) mmol/L BUN 17 (7.0-18.0) mg/dL Creatinine 1.1 H (0.6-1.0) mg/dL Est Cr Clr Drug Dosing 56.64 mL/min Estimated GFR (MDRD) 52.4 ml/min Glucose 95 (74-106) mg/dL Calcium 8.8 (8.5-10.1) mg/dL Total Bilirubin 0.3 (0.2-1.0) mg/dL AST 28 (15-37) IU/L ALT 25 (14-63) IU/L Alkaline Phosphatase 67 (46-116) U/L Total Protein 7.8 (6.4-8.2) g/dL Albumin 4.1 (3.4-5.0) g/dL Globulin 3.7 H (2.0-3.5) g/dL Albumin/Globulin Ratio 1.1 L (1.3-2.8) Amylase 63 (25-115) U/L Lipase 130 (73-393) U/L Urine Color YELLOW Urine Appearance CLEAR Urine pH 6.5 (5.0-8.0) Ur Specific [place] <= 1.005 (1.001-1.035) Urine Protein NEGATIVE (NEGATIVE) mg/dL Urine Glucose (UA) NEGATIVE (NEGATIVE) mg/dL Urine Ketones NEGATIVE (NEGATIVE) mg/dL Urine Occult Blood NEGATIVE (NEGATIVE) Urine Nitrite NEGATIVE (NEGATIVE) Urine Bilirubin NEGATIVE (NEGATIVE) Urine Urobilinogen 0.2 (<2.0) EU/dL Ur Leukocyte Esterase NEGATIVE (NEGATIVE) Urine RBC NONE SEEN (0-2/HPF) Urine WBC 0-1 (0-5/HPF) Ur Epithelial Cells FEW (NONE-FEW) Urine Bacteria 2+ H (NEGATIVE) Urine Opiates Screen (NEGATIVE) Ur Oxycodone Screen (NEGATIVE) Urine Methadone Screen (NEGATIVE) Ur Barbiturates Screen (NEGATIVE) Ur Phencyclidine Scrn (NEGATIVE) Ur Amphetamine Screen (NEGATIVE) U Methamphetamines Scrn (NEGATIVE) U Benzodiazepines Scrn (NEGATIVE) U Cocaine Metab Screen (NEGATIVE) U Marijuana (THC) Screen (NEGATIVE) 12/04/17 Range/Units 15:20 WBC (4.0-11.0) K/uL RBC (4.30-5.90) M/uL Hgb (12.0-16.0) g/dL Hct (36.0-46.0) % MCV (80.0-98.0) fL MCH (27.0-32.0) pg MCHC (31.0-37.0) g/dL RDW Std Deviation (28.0-62.0) fl RDW Coeff of Maya (11.0-15.0) % Plt Count (150-400) K/uL MPV (7.40-12.00) fL Neut % (Auto) (48.0-80.0) % Lymph % (Auto) (16.0-40.0) % [place] % (Auto) (0.0-15.0) % Eos % (Auto) (0.0-7.0) % Baso % (Auto) (0.0-1.5) % Neut # (Auto) (1.4-5.7) K/uL Lymph # (Auto) (0.6-2.4) K/uL [place] # (Auto) (0.0-0.8) K/uL Eos # (Auto) (0.0-0.7) K/uL Baso # (Auto) (0.0-0.1) K/uL Nucleated RBC % /100WBC Nucleated RBCs # K/uL Sodium (136-145) mmol/L Potassium (3.5-5.1) mmol/L Chloride (98-107) mmol/L Carbon Dioxide (21.0-32.0) mmol/L BUN (7.0-18.0) mg/dL Creatinine (0.6-1.0) mg/dL Est Cr Clr Drug Dosing mL/min Estimated GFR (MDRD) ml/min Glucose (74-106) mg/dL Calcium (8.5-10.1) mg/dL Total Bilirubin (0.2-1.0) mg/dL AST (15-37) IU/L ALT (14-63) IU/L Alkaline Phosphatase (46-116) U/L Total Protein (6.4-8.2) g/dL Albumin (3.4-5.0) g/dL Globulin (2.0-3.5) g/dL Albumin/Globulin Ratio (1.3-2.8) Amylase (25-115) U/L Lipase (73-393) U/L Urine Color Urine Appearance Urine pH (5.0-8.0) Ur Specific [place] (1.001-1.035) Urine Protein (NEGATIVE) mg/dL Urine Glucose (UA) (NEGATIVE) mg/dL Urine Ketones (NEGATIVE) mg/dL Urine Occult Blood (NEGATIVE) Urine Nitrite (NEGATIVE) Urine Bilirubin (NEGATIVE) Urine Urobilinogen (<2.0) EU/dL Ur Leukocyte Esterase (NEGATIVE) Urine RBC (0-2/HPF) Urine WBC (0-5/HPF) Ur Epithelial Cells (NONE-FEW) Urine Bacteria (NEGATIVE) Urine Opiates Screen NEGATIVE (NEGATIVE) Ur Oxycodone Screen NEGATIVE (NEGATIVE) Urine Methadone Screen NEGATIVE (NEGATIVE) Ur Barbiturates Screen NEGATIVE (NEGATIVE) Ur Phencyclidine Scrn NEGATIVE (NEGATIVE) Ur Amphetamine Screen NEGATIVE (NEGATIVE) U Methamphetamines Scrn NEGATIVE (NEGATIVE) U Benzodiazepines Scrn NEGATIVE (NEGATIVE) U Cocaine Metab Screen NEGATIVE (NEGATIVE) U Marijuana (THC) Screen NEGATIVE (NEGATIVE) Meds: Medications Generic Name Dose Route Start Last Admin Trade Name Freq PRN Reason Stop Dose Admin Sodium Chloride 10 ml 12/04/17 14:10 Saline Flush FLUSH ASDIRECTED PRN Keep Vein Open Sodium Chloride 2.5 ml 12/04/17 14:10 Saline Flush FLUSH ASDIRECTED PRN Keep Vein Open Discontinued Medications Generic Name Dose Route Start Last Admin Trade Name Freq PRN Reason Stop Dose Admin Famotidine 20 mg 12/04/17 14:11 12/04/17 14:32 Pepcid IVPUSH 12/04/17 14:12 20 mg ONETIME ONE Administration Hydromorphone HCl 0.5 mg 12/04/17 14:14 12/04/17 14:33 Dilaudid IM 12/04/17 14:15 0.5 mg ONETIME ONE Administration Sodium Chloride 1,000 mls @ 999 mls/hr 12/04/17 14:11 12/04/17 14:32 Normal Saline IV 12/04/17 15:11 999 mls/hr STAT ONE Administration Iopamidol 70 ml 12/04/17 15:26 12/04/17 15:26 Isovue Multipack-370 (76%) IVPUSH 12/04/17 15:27 70 ml ONETIME ONE Administration Lorazepam 1 mg 12/04/17 15:47 12/04/17 15:54 Ativan IVPUSH 12/04/17 15:48 1 mg ONETIME ONE Administration Ondansetron HCl 4 mg 12/04/17 14:11 12/04/17 14:32 Zofran IVPUSH 12/04/17 14:12 4 mg ONETIME ONE Administration Departure - Departure Time of Disposition: 16:06 Disposition: Home, Self-Care 01 Condition: Good Clinical Impression: UTI, Urinary tract infectious disease - Discharge Information Prescriptions: Ciprofloxacin HCl [Cipro] 500 mg PO BID #10 tablet Referrals: Meme Vasqeuz MD [Primary Care Provider] - Additional Instructions: The following information is given to patients seen in the emergency department who are being discharged to home. This information is to outline your options for follow-up care. We provide all patients seen in our emergency department with a follow-up referral. The need for follow-up, as well as the timing and circumstances, are variable depending upon the specifics of your emergency department visit. If you don't have a primary care physician on staff, we will provide you with a referral. We always advise you to contact your personal physician following an emergency department visit to inform them of the circumstance of the visit and for follow-up with them and/or the need for any referrals to a consulting specialist. The emergency department will also refer you to a specialist when appropriate. This referral assures that you have the opportunity for followup care with a specialist. All of these measure are taken in an effort to provide you with optimal care, which includes your followup. Under all circumstances we always encourage you to contact your private physician who remains a resource for coordinating your care. When calling for followup care, please make the office aware that this follow-up is from your recent emergency room visit. If for any reason you are refused follow-up, please contact the [facility] emergency department at and asked to speak to the emergency department charge nurse. Follow-up with your primary care next week You have a urinary tract infection which will be treated by antibiotics Cipro has been sent to your pharmacy - My Orders Last 24 Hours: My Active Orders 12/04/17 14:10 EKG Documentation Completion [RC] STAT Sodium Chloride 0.9% [Saline Flush] 10 ml FLUSH ASDIRECTED PRN Sodium Chloride 0.9% [Saline Flush] 2.5 ml FLUSH ASDIRECTED PRN Saline Lock Insert [OM.PC] Stat 12/04/17 14:11 Abdomen Pelvis w Cont [CT] Stat 12/04/17 15:20 CULTURE URINE [RM] Stat - Assessment/Plan Last 24 Hours: My Active Orders 12/04/17 14:10 EKG Documentation Completion [RC] STAT Sodium Chloride 0.9% [Saline Flush] 10 ml FLUSH ASDIRECTED PRN Sodium Chloride 0.9% [Saline Flush] 2.5 ml FLUSH ASDIRECTED PRN Saline Lock Insert [OM.PC] Stat 12/04/17 14:11 Abdomen Pelvis w Cont [CT] Stat 12/04/17 15:20 CULTURE URINE [RM] Stat
[2017-12-04] MEDS ORDERED: Sodium Chloride 0.9% 2.5 ML Syringe FLUSH PRN (14:10)
[2017-12-04] MEDS ORDERED: Sodium Chloride 0.9% 10 ML Syringe FLUSH PRN (14:10)
[2017-12-04] MEDS ORDERED: Famotidine 20 MG/2 ML SDV IVPUSH ONE (14:11)
[2017-12-04] MEDS ORDERED: Sodium Chloride 0.9% 1,000 ML IV ONE (14:11)
[2017-12-04] MEDS ORDERED: Ondansetron 4 MG/2 ML SDV IVPUSH ONE (14:11)
[2017-12-04] MEDS ORDERED: HYDROmorphone 1 MG/ML Syringe IM ONE (14:14)
[2017-12-04] MEDS ORDERED: Iopamidol 755 MG/ML 200 ML Multipack Bottle IVPUSH ONE (15:26)
[2017-12-04] MEDS ORDERED: LORazepam 2 MG/ML SDV IVPUSH ONE (15:47)
[2017-12-04 16:30] VITALS: BP 125/83
--- NOTE | 2017-12-05 16:03 | CT ---
EXAM DATE: 12/04/17 PATIENT'S AGE: 52 Patient: HERBER RANDLE Facility: [place], [place] Site . Site : [id number] Study: CT Abdomen/Pelvis W CONT [id number]/11/2018 3:29:15 PM Ordering Physician: Doctor Burns Final Report: HISTORY: Abdominal pain. Prior pancreatitis. TECHNIQUE: Intravenous contrast enhanced CT of the abdomen and pelvis. 70 mL of Isovue-370 intravenous contrast administered. COMPARISON: 06/08/2016. FINDINGS: Minimal focal fatty infiltration within the medial segment of the left hepatic lobe adjacent to the falciform ligament. No other focal hepatic abnormality. No biliary ductal dilatation. Gallbladder does not appear overly distended. Spleen size within normal limits. Adrenal glands are normal. No focal pancreatic abnormality, pancreatic ductal dilatation or peripancreatic inflammatory change. Symmetric nephrograms. No renal mass or hydronephrosis. No obstructive urinary calculus. Urinary bladder appears mildly distended. - No small bowel obstruction. No appendicitis. No diverticulitis or definite colitis. No abdominal or pelvic fluid collection. No free air. No abdominal aortic aneurysm. The mesenteric and renal arterial vasculature is patent. No technically enlarged lymph nodes. Prior hysterectomy. - No acute bony abnormality. - There is no consolidation within lung bases nor pleural effusion. IMPRESSION: 1. No acute peripancreatic inflammatory changes. 2. No specific identified cause of the patient`s abdominal pain. Dictated by Andrés Wesley MD @ 12/04/2017 3:54:55 PM Dictated by: Andrés Wesley MD @ 12/04/2017 15:55:09 (Electronic Signature) Report Signed by Proxy. NAS[facility] UNIVERSITY MEDICAL CENTERMitesh
== END 2017-12-04 16:18 | disposition home or self-care (01) ==
LOC: MW.ED 13:32
DX: N39.0 Urinary tract infection, site not specified (principal); I10 Essential (primary) hypertension; F32.9 Major depressive disorder, single episode, unspecified; Z87.891 Personal history of nicotine dependence; Z79.899 Other long term (current) drug therapy; Z88.5 Allergy status to narcotic agent; Z88.6 Allergy status to analgesic agent; Z98.890 Other specified postprocedural states
CPT/HCPCS: 36415; 74177; 80053; 80305; 81001; 82150; 83690; 85025; 87086; 93005; 96361; 96374; 96375; 99284; J1170; J2060; J2405; J7040; Q9967; 87088; 87186; 99283

== ENCOUNTER 2018-01-15 21:39 | Emergency (ER) | payer MEDICAID ==
--- NOTE | 2018-01-15 22:03 | EDM.PDOC ---
ED HPI GENERAL MEDICAL PROBLEM - General Chief Complaint: Skin Complaint Stated Complaint: PAIN/NEEDLE INJECTED ON LT ARM Time Seen by Provider: 01/15/18 21:59 Source of Information: Reports: Patient - History of Present Illness INITIAL COMMENTS - FREE TEXT/NARRATIVE: HISTORY AND PHYSICAL: History of present illness: [Patient presents with history of methamphetamine use 3 days She injected her left arm she now has redness warmth and tenderness to the affected arm from the antecubital fossa over bicep measuring 10 cm at the longest point there is no induration or fluctuance full range of motion of the elbow patient rates pain 10 out of 10 but exhibits no pain behavior and moves her arm freely and does not withdraw from pain with palpation No fever nausea vomiting chills sweats Review of systems: As per history of present illness and below otherwise all systems reviewed and negative. Past medical history: As per history of present illness and as reviewed below otherwise noncontributory. Surgical history: As per history of present illness and as reviewed below otherwise noncontributory. Social history: No reported history of drug or alcohol abuse. Family history: As per history of present illness and as reviewed below otherwise noncontributory. Physical exam: HEENT: Atraumatic, normocephalic, pupils reactive, negative for conjunctival pallor or scleral icterus, mucous membranes moist, throat clear, neck supple, nontender, trachea midline. Lungs: Clear to auscultation, breath sounds equal bilaterally, chest nontender. Heart: S1S2, regular, negative for clicks, rubs, or JVD. Abdomen: Soft, nondistended, nontender. Negative for masses or hepatosplenomegaly. Negative for costovertebral tenderness. Pelvis: Stable nontender. Genitourinary: Deferred. Rectal: Deferred. Extremities: Atraumatic, negative for cords or calf pain. Neurovascular unremarkable. Neuro: Awake, alert, oriented. Cranial nerves II through XII unremarkable. Cerebellum unremarkable. Motor and sensory unremarkable throughout. Exam nonfocal. Skin as per history of present illness lesion demarcated with a skin pen Diagnostics: [ clinical ] Therapeutics: [ 1 g Rocephin IM Bactrim double strength by mouth twice a day #20 no refill ] Impression: [ cellulitis ] Definitive disposition and diagnosis as appropriate pending reevaluation and review of above. left arm Pain Score (Numeric/FACES): 10 - Related Data Allergies Allergy/AdvReac Type Severity Reaction Status Date / Time hydrocodone Allergy Itching Verified 01/15/18 21:54 ketorolac [From Toradol] Allergy Rash Verified 01/15/18 21:57 Home Meds: Home Meds ALPRAZolam [Alprazolam] 1 - 1.5 tab PO BEDTIME PRN 08/06/17 [History] ClonazePAM [KlonoPIN] 1 tab PO TID PRN 08/06/17 [History] Lisdexamfetamine Dimesylate [Vyvanse] 40 mg PO DAILY 08/06/17 [History] Omeprazole 40 mg PO DAILY 08/06/17 [History] Oxybutynin 2 tab PO TID 08/06/17 [History] Topiramate 50 mg PO BID 08/06/17 [History] chlorproMAZINE 1 tab PO BID 08/06/17 [History] cloNIDine [Catapres] 0.1 mg PO BID 08/06/17 [History] valACYclovir [Valtrex] 2 tab PO DAILY PRN 08/06/17 [History] Ciprofloxacin HCl [Cipro] 500 mg PO BID #10 tablet 12/04/17 [Rx] Past Medical History HEENT History: Other HEENT History: has glasses but doesn't wear them Cardiovascular History: Reports: Hypertension Respiratory History: Reports: None Gastrointestinal History: Reports: Hepatitis Other Gastrointestinal History: HX of Hepatitis C....states was treated and no longer has Genitourinary History: Reports: Other (See Below) Other Genitourinary History: Overactive bladder 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 Musculoskeletal History: Reports: Gout Neurological History: Reports: None Psychiatric History: Reports: ADD, Anxiety, Bipolar, Depression, PTSD Endocrine/Metabolic History: Reports: None Hematologic History: Reports: None Immunologic History: Reports: None Oncologic (Cancer) History: Reports: None Dermatologic History: Reports: None - Infectious Disease History Infectious Disease History: Reports: Chicken Pox, Hepatitis C, Herpes - Past Surgical History Head Surgeries/Procedures: Reports: None HEENT Surgical History: Reports: Oral Surgery Other HEENT Surgeries/Procedures: wisdom teeth removed GI Surgical History: Reports: Colonoscopy, EGD Female Surgical History: Reports: Hysterectomy Musculoskeletal Surgical History: Reports: None Social & Family History - Family History Family Medical History: Noncontributory - Tobacco Use Smoking Status *Q: Current Every Day Smoker Years of Tobacco use: 3 Packs/Tins Daily: 1 Used Tobacco, but Quit: Yes Month/Year Tobacco Last Used: 04/2015 Second Hand Smoke Exposure: No - Caffeine Use Caffeine Use: Reports: Coffee - Alcohol Use Days Per Week of Alcohol Use: 5 Number of Drinks Per Day: 2 Total Drinks Per Week: 10 - Recreational Drug Use Recreational Drug Use: Yes Drug Use in Last 12 Months: Yes Recreational Drug Type: Reports: Methamphetamine Recreational Drug Use Frequency: Not Used In Over 1 Month ED ROS GENERAL - Review of Systems Review Of Systems: ROS reveals no pertinent complaints other than HPI. ED EXAM, SKIN/RASH Exam: See Below Course - Vital Signs Last Recorded V/S: Last Vital Signs Temp 97.7 F 01/15/18 21:39 Pulse 119 H 01/15/18 21:39 Resp 18 01/15/18 21:39 BP 158/107 H 01/15/18 21:39 Pulse Ox 95 01/15/18 21:39 Departure - Departure Time of Disposition: 22:01 Disposition: Home, Self-Care 01 Condition: Good Clinical Impression: Cellulitis - Discharge Information Referrals: PCP,None [Primary Care Provider] - Additional Instructions: The following information is given to patients seen in the emergency department who are being discharged to home. This information is to outline your options for follow-up care. We provide all patients seen in our emergency department with a follow-up referral. The need for follow-up, as well as the timing and circumstances, are variable depending upon the specifics of your emergency department visit. If you don't have a primary care physician on staff, we will provide you with a referral. We always advise you to contact your personal physician following an emergency department visit to inform them of the circumstance of the visit and for follow-up with them and/or the need for any referrals to a consulting specialist. The emergency department will also refer you to a specialist when appropriate. This referral assures that you have the opportunity for follow-up care with a specialist. All of these measure are taken in an effort to provide you with optimal care, which includes your follow-up. Under all circumstances we always encourage you to contact your private physician who remains a resource for coordinating your care. When calling for follow-up care, please make the office aware that this follow-up is from your recent emergency room visit. If for any reason you are refused follow-up, please contact the [facility] emergency department at and asked to speak to the emergency department charge nurse.
[2018-01-15] MEDS ORDERED: cefTRIAXone 1,000 MG in Lidocaine 1% 4 ML IM ONE (22:06)
[2018-01-15] MEDS ORDERED: Sulfamethoxazole/Trimethoprim 800-160 MG Tab PO ONE (22:07)
[2018-01-15 23:17] VITALS: BP 135/94
== END 2018-01-15 22:30 | disposition home or self-care (01) ==
LOC: MW.ED 21:39
DX: L03.114 Cellulitis of left upper limb (principal); I10 Essential (primary) hypertension; F19.10 Other psychoactive substance abuse, uncomplicated; F31.9 Bipolar disorder, unspecified; F17.210 Nicotine dependence, cigarettes, uncomplicated; F98.8 Other specified behavioral and emotional disorders with onset usually occurring in childhood and adolescence; Z79.899 Other long term (current) drug therapy; Z88.5 Allergy status to narcotic agent; Z90.710 Acquired absence of both cervix and uterus
CPT/HCPCS: 96372; 99283; A9270; J0696

== ENCOUNTER 2018-03-09 20:53 | Emergency (ER) | payer MEDICAID ==
[2018-03-09] MEDS ORDERED: traMADol 50 MG Tab PO ONE (22:34)
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
[2018-03-09] MEDS ORDERED: Silver Sulfadiazine 1% Crm 50 GM Tube TOP ONE (22:48)
[2018-03-09 23:11] VITALS: BP 140/81
== END 2018-03-09 23:05 | disposition home or self-care (01) ==
LOC: MW.ED 20:53
DX: T33.71XA Superficial frostbite of right knee and lower leg, initial encounter (principal); I10 Essential (primary) hypertension; F41.9 Anxiety disorder, unspecified; F32.9 Major depressive disorder, single episode, unspecified; Z88.5 Allergy status to narcotic agent; Z87.891 Personal history of nicotine dependence; Z79.899 Other long term (current) drug therapy; X31.XXXA Exposure to excessive natural cold, initial encounter
CPT/HCPCS: 99283; A9270

== ENCOUNTER 2018-12-18 03:22 | Emergency (ER) | payer MEDICAID ==
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
[2018-12-18] MEDS ORDERED: Ketorolac 30 MG/ML SDV IM ONE (05:23)
[2018-12-18 05:49] VITALS: BP 134/88
== END 2018-12-18 05:45 | disposition home or self-care (01) ==
LOC: MW.ED 03:22
DX: Z04.41 Encounter for examination and observation following alleged adult rape (principal); S29.9XXA Unspecified injury of thorax, initial encounter; I10 Essential (primary) hypertension; F41.9 Anxiety disorder, unspecified; F32.9 Major depressive disorder, single episode, unspecified; Z88.5 Allergy status to narcotic agent; Z79.899 Other long term (current) drug therapy; Y08.89XA Assault by other specified means, initial encounter
CPT/HCPCS: 71101; 96372; 99284; J1885

== ENCOUNTER 2019-01-22 16:59 | Emergency (ER) | payer MEDICAID ==
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
[2019-01-22 17:50] VITALS: BP 140/94
== END 2019-01-22 17:45 ==
LOC: MW.ED 16:59
DX: F10.129 Alcohol abuse with intoxication, unspecified (principal); F41.9 Anxiety disorder, unspecified; F32.9 Major depressive disorder, single episode, unspecified; Z88.5 Allergy status to narcotic agent; Z79.899 Other long term (current) drug therapy
CPT/HCPCS: 82962; 99283

== ENCOUNTER 2019-01-23 07:10 | Emergency (ER) | payer MEDICAID ==
[2019-01-23] MEDS ORDERED: Ondansetron 4 MG/2 ML SDV IVPUSH ONE (07:20)
[2019-01-23] MEDS ORDERED: Sodium Chloride 0.9% 1,000 ML IV ONE (07:20)
[2019-01-23] MEDS ORDERED: Ketorolac 30 MG/ML SDV IVPUSH ONE (07:20)
[2019-01-23] MEDS ORDERED: Pantoprazole 40 MG Vial IVPUSH ONE (07:20)
--- NOTE | 2019-01-23 07:23 | EDM.PDOC ---
ED HPI GENERAL MEDICAL PROBLEM - General Chief Complaint: Drug or Alcohol Abuse Stated Complaint: DETOXING Time Seen by Provider: 01/23/19 07:22 Source of Information: Reports: Patient, Police - History of Present Illness INITIAL COMMENTS - FREE TEXT/NARRATIVE: HISTORY AND PHYSICAL: History of present illness: []Shows recently seen for detoxing for methamphetamine Currently she was for release this morning but developed abdominal pain 7 out of 10 nonradiating appears to be epigastric right upper quadrant however diffuse on exam No fever nausea vomiting chills sweats no chest pain shortness breath headache dizziness palpitation no bowel or urine symptoms Review of systems: As per history of present illness and below otherwise all systems reviewed and negative. Past medical history: As per history of present illness and as reviewed below otherwise noncontributory. Surgical history: As per history of present illness and as reviewed below otherwise noncontributory. Social history: No reported history of drug or alcohol abuse. Family history: As per history of present illness and as reviewed below otherwise noncontributory. Physical exam: HEENT: Atraumatic, normocephalic, pupils reactive, negative for conjunctival pallor or scleral icterus, mucous membranes moist, throat clear, neck supple, nontender, trachea midline. Lungs: Clear to auscultation, breath sounds equal bilaterally, chest nontender. Heart: S1S2, regular, negative for clicks, rubs, or JVD. Abdomen: Soft, nondistended, nontender. Negative for masses or hepatosplenomegaly. Negative for costovertebral tenderness. Pelvis: Stable nontender. Genitourinary: Deferred. Rectal: Deferred. Extremities: Atraumatic, negative for cords or calf pain. Neurovascular unremarkable. Neuro: Awake, alert, oriented. Cranial nerves II through XII unremarkable. Cerebellum unremarkable. Motor and sensory unremarkable throughout. Exam nonfocal. Diagnostics: [CBC CMP UA lipase troponin Abdominal ultrasound Limited Abdominal flat and upright ] Therapeutics: [Normal saline Zofran Toradol Proton X ] Impression: [ abdominal pain ]-resolved Likely drug-seeking behavior Definitive disposition and diagnosis as appropriate pending reevaluation and review of above. Abdomen Pain Score (Numeric/FACES): 10 - Related Data Allergies Allergy/AdvReac Type Severity Reaction Status Date / Time hydrocodone Allergy Itching Verified 01/23/19 07:17 Home Meds: Home Meds ALPRAZolam [Alprazolam] 1 tab PO BEDTIME PRN 08/06/17 [History] ClonazePAM [KlonoPIN] 1 tab PO TID PRN 08/06/17 [History] Lisdexamfetamine Dimesylate [Vyvanse] 40 mg PO DAILY 08/06/17 [History] Omeprazole 40 mg PO DAILY 08/06/17 [History] Oxybutynin 2 tab PO TID 08/06/17 [History] cloNIDine [Catapres] 0.1 mg PO BID 08/06/17 [History] Cyclobenzaprine [Flexeril] 10 mg PO ASDIRECTED PRN 01/15/18 [History] Ondansetron HCl [Zofran] 4 mg PO ASDIRECTED 01/15/18 [History] Past Medical History HEENT History: Reports: Other (See Below) Other HEENT History: has glasses but doesn't wear them Cardiovascular History: Reports: Hypertension Respiratory History: Reports: None Gastrointestinal History: Reports: Hepatitis Other Gastrointestinal History: complains of continuous abdominal pain dr. [place]. Genitourinary History: Reports: Other (See Below) Other Genitourinary History: Overactive bladder [employer] History: Reports: None Musculoskeletal History: Reports: Gout Neurological History: Reports: None Psychiatric History: Reports: ADD, Anxiety, Depression, PTSD, PTSD Endocrine/Metabolic History: Reports: None Hematologic History: Reports: None Immunologic History: Reports: None Oncologic (Cancer) History: Reports: None Dermatologic History: Reports: None - Infectious Disease History Infectious Disease History: Reports: Hepatitis C - Past Surgical History Head Surgeries/Procedures: Reports: None HEENT Surgical History: Reports: Oral Surgery Other HEENT Surgeries/Procedures: wisdom teeth removed Cardiovascular Surgical History: Reports: None Respiratory Surgical History: Reports: None GI Surgical History: Reports: Other (See Below) Other GI Surgeries/Procedures: UGI Female Surgical History: Reports: Hysterectomy Endocrine Surgical History: Reports: None Neurological Surgical History: Reports: None Musculoskeletal Surgical History: Reports: None Oncologic Surgical History: Reports: None Dermatological Surgical History: Reports: None Social & Family History - Family History Family Medical History: Noncontributory - Tobacco Use Smoking Status *Q: Current Every Day Smoker Years of Tobacco use: 10 Packs/Tins Daily: 0.5 - Caffeine Use Caffeine Use: Reports: Coffee, Energy Drinks, Soda, Tea - Recreational Drug Use Recreational Drug Use: Yes Recreational Drug Type: Reports: Methamphetamine Recreational Drug Use Frequency: Socially ED ROS GENERAL - Review of Systems Review Of Systems: See Below ED EXAM, GENERAL - Physical Exam Exam: See Below Course - Vital Signs Last Recorded V/S: Last Vital Signs Temp 98.5 F 01/23/19 07:49 Pulse 84 01/23/19 07:49 Resp 13 01/23/19 07:49 BP 177/106 H 01/23/19 07:49 Pulse Ox 99 01/23/19 07:49 - Orders/Labs/Meds Orders: Active Orders 24 hr Category Date Time Status EKG Documentation Completion [RC] STAT Care 01/23/19 07:21 Active Abdomen 2V AP Flat Upright [CR] Stat Exams 01/23/19 08:37 Ordered DRUG SCREEN, URINE [URCHEM] Stat Lab 01/23/19 08:55 Received UA RFX HERMILA AND CULT IF INDIC [URIN] Stat Lab 01/23/19 08:55 Received Labs: Laboratory Tests 01/23/19 01/23/19 Range/Units 07:26 07:26 WBC 9.32 (4.0-11.0) K/uL RBC 4.69 (4.30-5.90) M/uL Hgb 14.6 (12.0-16.0) g/dL Hct 43.9 (36.0-46.0) % MCV 93.6 (80.0-98.0) fL MCH 31.1 (27.0-32.0) pg MCHC 33.3 (31.0-37.0) g/dL RDW Std Deviation 41.3 (28.0-62.0) fl RDW Coeff of Maya 12 (11.0-15.0) % Plt Count 319 (150-400) K/uL MPV 10.00 (7.40-12.00) fL Neut % (Auto) 69.0 (48.0-80.0) % Lymph % (Auto) 23.9 (16.0-40.0) % [place] % (Auto) 6.1 (0.0-15.0) % Eos % (Auto) 0.6 (0.0-7.0) % Baso % (Auto) 0.4 (0.0-1.5) % Neut # (Auto) 6.4 H (1.4-5.7) K/uL Lymph # (Auto) 2.2 (0.6-2.4) K/uL [place] # (Auto) 0.6 (0.0-0.8) K/uL Eos # (Auto) 0.1 (0.0-0.7) K/uL Baso # (Auto) 0.0 (0.0-0.1) K/uL Nucleated RBC % 0.0 /100WBC Nucleated RBCs # 0 K/uL Sodium 137 (136-145) mmol/L Potassium 4.6 (3.5-5.1) mmol/L Chloride 99 (98-107) mmol/L Carbon Dioxide 31.3 (21.0-32.0) mmol/L BUN 9 (7.0-18.0) mg/dL Creatinine 0.9 (0.6-1.0) mg/dL Est Cr Clr Drug Dosing 68.45 mL/min Estimated GFR (MDRD) > 60.0 ml/min Glucose 101 (74-106) mg/dL Calcium 9.2 (8.5-10.1) mg/dL Total Bilirubin 0.3 (0.2-1.0) mg/dL AST 23 (15-37) IU/L ALT 23 (14-63) IU/L Alkaline Phosphatase 81 (46-116) U/L Troponin I < 0.050 (0.000-0.056) ng/mL Total Protein 7.6 (6.4-8.2) g/dL Albumin 3.8 (3.4-5.0) g/dL Globulin 3.8 (2.6-4.0) g/dL Albumin/Globulin Ratio 1.0 (0.9-1.6) Lipase 170 (73-393) U/L Meds: Medications Discontinued Medications Generic Name Dose Route Start Last Admin Trade Name Freq PRN Reason Stop Dose Admin Sodium Chloride 1,000 mls @ 999 mls/hr 01/23/19 07:20 01/23/19 07:30 Normal Saline IV 01/23/19 08:20 999 mls/hr STAT ONE Administration Sodium Chloride Confirm 01/23/19 07:23 01/23/19 07:32 Normal Saline Administered 01/23/19 07:24 Not Given Dose 20 mls @ as directed .ROUTE .STK-MED ONE Ketorolac Tromethamine 30 mg 01/23/19 07:20 01/23/19 07:30 Toradol IVPUSH 01/23/19 07:21 30 mg ONETIME ONE Administration Lorazepam 1 mg 01/23/19 08:35 01/23/19 08:40 Ativan IVPUSH 01/23/19 08:36 1 mg ONETIME ONE Administration Ondansetron HCl 8 mg 01/23/19 07:20 01/23/19 07:30 Zofran IVPUSH 01/23/19 07:21 8 mg ONETIME ONE Administration Pantoprazole Sodium 80 mg 01/23/19 07:20 01/23/19 07:30 Protonix Iv IVPUSH 01/23/19 07:21 80 mg .BOLUS ONE Administration Sodium Chloride 20 ml 01/23/19 07:32 01/23/19 07:33 Normal Saline IV 01/23/19 07:33 20 ml ONETIME ONE Administration Departure - Departure Time of Disposition: 09:23 Disposition: Home, Self-Care 01 Condition: Good Clinical Impression: Drug abuse, Abdominal pain - Discharge Information Referrals: PCP,Unknown [Primary Care Provider] - Forms: ED Department Discharge Additional Instructions: The following information is given to patients seen in the emergency department who are being discharged to home. This information is to outline your options for follow-up care. We provide all patients seen in our emergency department with a follow-up referral. The need for follow-up, as well as the timing and circumstances, are variable depending upon the specifics of your emergency department visit. If you don't have a primary care physician on staff, we will provide you with a referral. We always advise you to contact your personal physician following an emergency department visit to inform them of the circumstance of the visit and for follow-up with them and/or the need for any referrals to a consulting specialist. The emergency department will also refer you to a specialist when appropriate. This referral assures that you have the opportunity for follow-up care with a specialist. All of these measure are taken in an effort to provide you with optimal care, which includes your follow-up. Under all circumstances we always encourage you to contact your private physician who remains a resource for coordinating your care. When calling for follow-up care, please make the office aware that this follow-up is from your recent emergency room visit. If for any reason you are refused follow-up, please contact the [facility] emergency department at and asked to speak to the emergency department charge nurse. - My Orders Last 24 Hours: My Active Orders 01/23/19 07:21 EKG Documentation Completion [RC] STAT 01/23/19 08:37 Abdomen 2V AP Flat Upright [CR] Stat 01/23/19 08:55 DRUG SCREEN, URINE [URCHEM] Stat UA RFX HERMILA AND CULT IF INDIC [URIN] Stat - Assessment/Plan Last 24 Hours: My Active Orders 01/23/19 07:21 EKG Documentation Completion [RC] STAT 01/23/19 08:37 Abdomen 2V AP Flat Upright [CR] Stat 01/23/19 08:55 DRUG SCREEN, URINE [URCHEM] Stat UA RFX HERMILA AND CULT IF INDIC [URIN] Stat
[2019-01-23] MEDS: Sodium Chloride 0.9% 20 ML ONE ×2 (07:30→07:32)
[2019-01-23] MEDS ORDERED: Sodium Chloride 0.9% 10 ML SDV IV ONE (07:32)
[2019-01-23 08:00] LABS: CHLORIDE,CL 99 mmol/L (98-107); SODIUM,NA 137 mmol/L (136-145)
[2019-01-23] MEDS ORDERED: LORazepam 2 MG/ML SDV IVPUSH ONE (08:35)
--- NOTE | 2019-01-23 08:43 | US ---
EXAMINATION: Right upper quadrant ultrasound HISTORY: Pain COMPARISON: CT dated 12/04/2017 TECHNIQUE: Grayscale and color Doppler imaging obtained of the right upper quadrant. FINDINGS: The visualized pancreas appears normal. The liver is normal in contour and echotexture without a focal hepatic mass. Gallbladder wall thickness is normal. Common bile duct measures 3 mm. Right kidney measures 9.9 cm [id number] without evidence hydronephrosis. Negative sonographic Jean Baptiste sign. IMPRESSION: Unremarkable right upper quadrant ultrasound.
--- NOTE | 2019-01-23 09:35 | CR ---
EXAMINATION: Abdomen HISTORY: Pain COMPARISON: CT dated 12/04/2017 TECHNIQUE: AP and upright views of the abdomen FINDINGS: Atelectasis and/or infiltrate is noted within the right lung base. No free air under the diaphragm. There is a nonobstructive bowel gas pattern. No organomegaly or abnormal calcifications. Visualized osseous structures appear normal. Small round metallic density projects near the left hip. IMPRESSION: 1. Right basilar atelectasis and/or infiltrate. 2. No acute abdominal findings.
[2019-01-23 09:39] VITALS: BP 139/89
== END 2019-01-23 09:38 | disposition home or self-care (01) ==
LOC: MW.ED 07:10
DX: R10.9 Unspecified abdominal pain (principal); F19.10 Other psychoactive substance abuse, uncomplicated; F17.210 Nicotine dependence, cigarettes, uncomplicated; F41.9 Anxiety disorder, unspecified; F32.9 Major depressive disorder, single episode, unspecified; Z79.899 Other long term (current) drug therapy; Z88.6 Allergy status to analgesic agent
CPT/HCPCS: 36415; 74019; 76705; 80053; 80305; 81003; 83690; 84484; 85025; 93005; 96374; 96375; 99285; C9113; J1885; J2060; J2405; J7040; J7050; 99283

== ENCOUNTER 2019-03-20 10:08 | Emergency (ER) | payer SELFPAY ==
--- NOTE | 2019-03-20 10:56 | EDM.PDOCBH ---
ED HPI GENERAL MEDICAL PROBLEM - General Chief Complaint: Behavioral/Psych Stated Complaint: MENTAL HEALTH Time Seen by Provider: 03/20/19 10:47 Source of Information: Reports: Patient History Limitations: Reports: No Limitations - History of Present Illness INITIAL COMMENTS - FREE TEXT/NARRATIVE: HISTORY AND PHYSICAL: History of present illness: Patient is a 53-year-old female here with complaint of suicidal ideation. She reports history of bipolar disorder, anxiety, depression. She states she has been off of her medications for about 50 days. She reports recently having suicidal thoughts and states she would "use a razor blade." She reports history of suicidal ideation but no attempts. She does admit to methamphetamine use, last use 60 days. She repots drinking 1.5 wine coolers this morning. Review of systems: As per history of present illness and below otherwise all systems reviewed and negative. Past medical history: As per history of present illness and as reviewed below otherwise noncontributory. Surgical history: As per history of present illness and as reviewed below otherwise noncontributory. Social history: No reported history of drug or alcohol abuse. Family history: As per history of present illness and as reviewed below otherwise noncontributory. Physical exam: General: Patient sitting comfortably in no acute distress and nontoxic appearing HEENT: Atraumatic, normocephalic, pupils reactive, negative for conjunctival pallor or scleral icterus, mucous membranes moist, throat clear, neck supple, nontender, trachea midline. No meningeal signs. Lungs: Clear to auscultation, breath sounds equal bilaterally, chest nontender. Heart: S1S2, regular, negative for clicks, rubs, or overt murmur. Abdomen: Soft, nondistended, nontender. Negative for masses or hepatosplenomegaly. Negative for costovertebral tenderness. No rigidity, rebound , guarding. Pelvis: Stable nontender. Genitourinary: Deferred. Rectal: Deferred. Extremities: Atraumatic, negative for cords or calf pain. Neurovascular unremarkable. Neuro: Awake, alert, oriented. Cranial nerves II through XII unremarkable. Cerebellum unremarkable. Motor and sensory unremarkable throughout. Exam nonfocal. Notes: Diagnostics: 3 C work up Therapeutics: 0.5mg lorazepam PO 4mg zofran ODT Prescriptions: None Impression: Bipolar disorder, suicidal behavior Plan: Discussed with Dr. Cooley, psych at [facility], who accepted patient for admission. Transfer via EMS. Definitive disposition and diagnosis as appropriate pending reevaluation and review of above. Abdominal Pain Score (Numeric/FACES): 10 - Related Data Allergies Allergy/AdvReac Type Severity Reaction Status Date / Time hydrocodone Allergy Itching Verified 03/20/19 10:27 Home Meds: Home Meds ALPRAZolam [Alprazolam] 1 tab PO BEDTIME PRN 08/06/17 [History] ClonazePAM [KlonoPIN] 1 tab PO TID PRN 08/06/17 [History] Lisdexamfetamine Dimesylate [Vyvanse] 40 mg PO DAILY 08/06/17 [History] Omeprazole 40 mg PO DAILY 08/06/17 [History] Oxybutynin 2 tab PO TID 08/06/17 [History] cloNIDine [Catapres] 0.1 mg PO BID 08/06/17 [History] Cyclobenzaprine [Flexeril] 10 mg PO ASDIRECTED PRN 01/15/18 [History] Ondansetron HCl [Zofran] 4 mg PO ASDIRECTED 01/15/18 [History] Past Medical History HEENT History: Reports: Other (See Below) Other HEENT History: has glasses but doesn't wear them Cardiovascular History: Reports: Hypertension Respiratory History: Reports: None Gastrointestinal History: Reports: Hepatitis Other Gastrointestinal History: complains of continuous abdominal pain dr. [place]. Genitourinary History: Reports: Other (See Below) Other Genitourinary History: Overactive bladder HOSTESS History: Reports: None Musculoskeletal History: Reports: Gout Neurological History: Reports: None Psychiatric History: Reports: ADD, Anxiety, Depression, PTSD, PTSD, Suicidal Ideation Endocrine/Metabolic History: Reports: None Hematologic History: Reports: None Immunologic History: Reports: None Oncologic (Cancer) History: Reports: None Dermatologic History: Reports: None - Infectious Disease History Infectious Disease History: Reports: Chicken Pox - Past Surgical History Head Surgeries/Procedures: Reports: None HEENT Surgical History: Reports: Oral Surgery Other HEENT Surgeries/Procedures: wisdom teeth removed Cardiovascular Surgical History: Reports: None Respiratory Surgical History: Reports: None GI Surgical History: Reports: Colonoscopy, EGD Female Surgical History: Reports: Hysterectomy Endocrine Surgical History: Reports: None Neurological Surgical History: Reports: None Musculoskeletal Surgical History: Reports: None Oncologic Surgical History: Reports: None Dermatological Surgical History: Reports: None Social & Family History - Family History Family Medical History: Noncontributory - Tobacco Use Smoking Status *Q: Current Every Day Smoker Years of Tobacco use: 20 Packs/Tins Daily: 0.3 - Caffeine Use Caffeine Use: Reports: Coffee - Alcohol Use Number of Drinks Per Day: 2 - Recreational Drug Use Recreational Drug Use: Yes Drug Use in Last 12 Months: Yes Recreational Drug Type: Reports: Methamphetamine Recreational Drug Use Frequency: Not Used In Over 2 Months ED ROS GENERAL - Review of Systems Review Of Systems: ROS reveals no pertinent complaints other than HPI. ED EXAM, BEHAVIORAL HEALTH - Physical Exam Exam: See Below (see dictation) COURSE, BEHAVIORAL HEALTH COMP - Course Vital Signs: Last Vital Signs Temp 97.0 F 03/20/19 10:24 Pulse 115 H 03/20/19 10:24 Resp 18 03/20/19 10:24 BP 151/92 H 03/20/19 10:24 Pulse Ox 95 03/20/19 10:24 Orders, Labs, Meds: Active Orders 24 hr Category Date Time Status EKG Documentation Completion [RC] STAT Care 03/20/19 10:38 Active Laboratory Tests 03/20/19 03/20/19 03/20/19 Range/Units 10:38 10:38 10:38 WBC (4.0-11.0) K/uL RBC (4.30-5.90) M/uL Hgb (12.0-16.0) g/dL Hct (36.0-46.0) % MCV (80.0-98.0) fL MCH (27.0-32.0) pg MCHC (31.0-37.0) g/dL RDW Std Deviation (28.0-62.0) fl RDW Coeff of Maya (11.0-15.0) % Plt Count (150-400) K/uL MPV (7.40-12.00) fL Neut % (Auto) (48.0-80.0) % Lymph % (Auto) (16.0-40.0) % [place] % (Auto) (0.0-15.0) % Eos % (Auto) (0.0-7.0) % Baso % (Auto) (0.0-1.5) % Neut # (Auto) (1.4-5.7) K/uL Lymph # (Auto) (0.6-2.4) K/uL [place] # (Auto) (0.0-0.8) K/uL Eos # (Auto) (0.0-0.7) K/uL Baso # (Auto) (0.0-0.1) K/uL Nucleated RBC % /100WBC Nucleated RBCs # K/uL Sodium (136-145) mmol/L Potassium (3.5-5.1) mmol/L Chloride (98-107) mmol/L Carbon Dioxide (21.0-32.0) mmol/L BUN (7.0-18.0) mg/dL Creatinine (0.6-1.0) mg/dL Est Cr Clr Drug Dosing mL/min Estimated GFR (MDRD) ml/min Glucose (74-106) mg/dL Calcium (8.5-10.1) mg/dL Magnesium (1.8-2.4) mg/dL Total Bilirubin (0.2-1.0) mg/dL AST (15-37) IU/L ALT (14-63) IU/L Alkaline Phosphatase (46-116) U/L Total Protein (6.4-8.2) g/dL Albumin (3.4-5.0) g/dL Globulin (2.6-4.0) g/dL Albumin/Globulin Ratio (0.9-1.6) TSH 3rd Generation (0.36-3.74) uIU/mL Urine Color YELLOW Urine Appearance CLEAR Urine pH 6.0 (5.0-8.0) Ur Specific [place] <= 1.005 (1.001-1.035) Urine Protein NEGATIVE (NEGATIVE) mg/dL Urine Glucose (UA) NEGATIVE (NEGATIVE) mg/dL Urine Ketones NEGATIVE (NEGATIVE) mg/dL Urine Occult Blood NEGATIVE (NEGATIVE) Urine Nitrite NEGATIVE (NEGATIVE) Urine Bilirubin NEGATIVE (NEGATIVE) Urine Urobilinogen 0.2 (<2.0) EU/dL Ur Leukocyte Esterase NEGATIVE (NEGATIVE) Urine RBC NONE SEEN (0-2/HPF) Urine WBC 0-2 (0-5/HPF) Ur Epithelial Cells FEW (NONE-FEW) Urine Bacteria 1+ H (NEGATIVE) Urine Mucus LIGHT (NONE-MOD) Urine HCG, Qual NEGATIVE (NEGATIVE) Salicylates (0-20) mg/dL Urine Opiates Screen NEGATIVE (NEGATIVE) Ur Oxycodone Screen NEGATIVE (NEGATIVE) Urine Methadone Screen NEGATIVE (NEGATIVE) Acetaminophen ug/mL Ur Barbiturates Screen NEGATIVE (NEGATIVE) Ur Phencyclidine Scrn NEGATIVE (NEGATIVE) Ur Amphetamine Screen NEGATIVE (NEGATIVE) U Methamphetamines Scrn NEGATIVE (NEGATIVE) U Benzodiazepines Scrn NEGATIVE (NEGATIVE) U Cocaine Metab Screen NEGATIVE (NEGATIVE) U Marijuana (THC) Screen NEGATIVE (NEGATIVE) Ethyl Alcohol mg/dL 03/20/19 03/20/19 Range/Units 10:48 10:48 WBC 7.30 (4.0-11.0) K/uL RBC 4.43 (4.30-5.90) M/uL Hgb 13.7 (12.0-16.0) g/dL Hct 40.9 (36.0-46.0) % MCV 92.3 (80.0-98.0) fL MCH 30.9 (27.0-32.0) pg MCHC 33.5 (31.0-37.0) g/dL RDW Std Deviation 41.9 (28.0-62.0) fl RDW Coeff of Maya 12 (11.0-15.0) % Plt Count 321 (150-400) K/uL MPV 10.60 (7.40-12.00) fL Neut % (Auto) 65.7 (48.0-80.0) % Lymph % (Auto) 25.9 (16.0-40.0) % [place] % (Auto) 7.8 (0.0-15.0) % Eos % (Auto) 0.1 (0.0-7.0) % Baso % (Auto) 0.5 (0.0-1.5) % Neut # (Auto) 4.8 (1.4-5.7) K/uL Lymph # (Auto) 1.9 (0.6-2.4) K/uL [place] # (Auto) 0.6 (0.0-0.8) K/uL Eos # (Auto) 0.0 (0.0-0.7) K/uL Baso # (Auto) 0.0 (0.0-0.1) K/uL Nucleated RBC % 0.0 /100WBC Nucleated RBCs # 0 K/uL Sodium 138 (136-145) mmol/L Potassium 3.5 (3.5-5.1) mmol/L Chloride 101 (98-107) mmol/L Carbon Dioxide 23.2 (21.0-32.0) mmol/L BUN 9 (7.0-18.0) mg/dL Creatinine 1.0 (0.6-1.0) mg/dL Est Cr Clr Drug Dosing 61.61 mL/min Estimated GFR (MDRD) 58.2 ml/min Glucose 121 H (74-106) mg/dL Calcium 8.9 (8.5-10.1) mg/dL Magnesium 1.9 (1.8-2.4) mg/dL Total Bilirubin 0.3 (0.2-1.0) mg/dL AST 42 H (15-37) IU/L ALT 37 (14-63) IU/L Alkaline Phosphatase 67 (46-116) U/L Total Protein 7.7 (6.4-8.2) g/dL Albumin 4.2 (3.4-5.0) g/dL Globulin 3.5 (2.6-4.0) g/dL Albumin/Globulin Ratio 1.2 (0.9-1.6) TSH 3rd Generation 0.89 (0.36-3.74) uIU/mL Urine Color Urine Appearance Urine pH (5.0-8.0) Ur Specific [place] (1.001-1.035) Urine Protein (NEGATIVE) mg/dL Urine Glucose (UA) (NEGATIVE) mg/dL Urine Ketones (NEGATIVE) mg/dL Urine Occult Blood (NEGATIVE) Urine Nitrite (NEGATIVE) Urine Bilirubin (NEGATIVE) Urine Urobilinogen (<2.0) EU/dL Ur Leukocyte Esterase (NEGATIVE) Urine RBC (0-2/HPF) Urine WBC (0-5/HPF) Ur Epithelial Cells (NONE-FEW) Urine Bacteria (NEGATIVE) Urine Mucus (NONE-MOD) Urine HCG, Qual (NEGATIVE) Salicylates 1.1 (0-20) mg/dL Urine Opiates Screen (NEGATIVE) Ur Oxycodone Screen (NEGATIVE) Urine Methadone Screen (NEGATIVE) Acetaminophen 13.5 ug/mL Ur Barbiturates Screen (NEGATIVE) Ur Phencyclidine Scrn (NEGATIVE) Ur Amphetamine Screen (NEGATIVE) U Methamphetamines Scrn (NEGATIVE) U Benzodiazepines Scrn (NEGATIVE) U Cocaine Metab Screen (NEGATIVE) U Marijuana (THC) Screen (NEGATIVE) Ethyl Alcohol 129 mg/dL Medications Discontinued Medications Generic Name Dose Route Start Last Admin Trade Name Alex PRN Reason Stop Dose Admin Lorazepam 0.5 mg 03/20/19 11:27 03/20/19 11:49 Ativan PO 03/20/19 11:28 0.5 mg ONETIME ONE Administration Ondansetron HCl 4 mg 03/20/19 11:27 03/20/19 11:48 Zofran Odt PO 03/20/19 11:28 4 mg ONETIME ONE Administration Departure - Departure Time of Disposition: 12:52 Disposition: DC/Tfer to Psych Hosp/Unit 65 Condition: Good Clinical Impression: Bipolar 1 disorder, Suicidal behavior - Discharge Information Referrals: PCP,None [Primary Care Provider] - Forms: ED Department Discharge Additional Instructions: The following information is given to patients seen in the emergency department who are being discharged to home. This information is to outline your options for follow-up care. We provide all patients seen in our emergency department with a follow-up referral. The need for follow-up, as well as the timing and circumstances, are variable depending upon the specifics of your emergency department visit. If you don't have a primary care physician on staff, we will provide you with a referral. We always advise you to contact your personal physician following an emergency department visit to inform them of the circumstance of the visit and for follow-up with them and/or the need for any referrals to a consulting specialist. The emergency department will also refer you to a specialist when appropriate. This referral assures that you have the opportunity for follow-up care with a specialist. All of these measure are taken in an effort to provide you with optimal care, which includes your follow-up. Under all circumstances we always encourage you to contact your private physician who remains a resource for coordinating your care. When calling for follow-up care, please make the office aware that this follow-up is from your recent emergency room visit. If for any reason you are refused follow-up, please contact the [facility] Emergency Department at and asked to speak to the emergency department charge nurse. [facility] [address] [place], [place] [id number] [address] [address] - My Orders Last 24 Hours: My Active Orders 03/20/19 10:38 EKG Documentation Completion [RC] STAT - Assessment/Plan Last 24 Hours: My Active Orders 03/20/19 10:38 EKG Documentation Completion [RC] STAT
[2019-03-20] MEDS ORDERED: LORazepam 0.5 MG Tab PO ONE (11:27)
[2019-03-20] MEDS ORDERED: Ondansetron 4 MG Tab.DIS PO ONE (11:27)
[2019-03-20 11:38] LABS: ACETAMINOPHEN 13.5 ug/mL
[2019-03-20] MEDS ORDERED: Alum Hydrox/Mag Hydrox/Simeth 15 ML, Lidocaine 2% 5 ML PO ONE ×2 (13:03)
[2019-03-20 15:09] VITALS: BP 122/70
== END 2019-03-20 15:02 ==
LOC: MW.ED 10:08
DX: F31.9 Bipolar disorder, unspecified (principal); F41.9 Anxiety disorder, unspecified; I10 Essential (primary) hypertension; F17.210 Nicotine dependence, cigarettes, uncomplicated; Z88.5 Allergy status to narcotic agent; Z79.899 Other long term (current) drug therapy
CPT/HCPCS: 36415; 80053; 80305; 81001; 81025; 83735; 84443; 85025; 93005; 99285; A9270; G0480

== ENCOUNTER 2019-03-26 13:04 | Emergency (ER) | payer MEDICAID ==
[2019-03-26] MEDS ORDERED: Ketorolac 60 MG/2 ML SDV IM ONE (13:27)
--- NOTE | 2019-03-26 13:33 | EDM.PDOC ---
ED HPI GENERAL MEDICAL PROBLEM - General Chief Complaint: Abdominal Pain Stated Complaint: STOMACH PAIN Time Seen by Provider: 03/26/19 13:20 - History of Present Illness INITIAL COMMENTS - FREE TEXT/NARRATIVE: HISTORY AND PHYSICAL: History of present illness: The patient is a 53-year-old female with a history of chronic abdominal pain that waxes and wanes and presents today with another episode of the same pain. She points to her upper abdominal wall in the midline along the edges of the rectus abdominis muscle and says that she has "scar tissue" that causes her intermittent pain. She said is not associated with nausea vomiting or fevers and she says she has had workups in the past and I have seen that she had a workup here in our emergency department the end of December including labs and abdominal ultrasound and an abdominal x-ray. She was recently seen here 5 days ago for suicidal ideation and exacerbation of her bipolar disorder and was transferred to [facility] in [place] where she says that her regimen of medication was completely stopped and she was placed on new medication including Zyprexa. She says that the Zyprexa is making her very drowsy and sleepy and she has used in the past with similar results. Says the Klonopin works better for her and she does have a follow-up appointment with Nancy Cortez on April 03 for follow-up and says she will likely have her medications changed at that time as well. She is not here for these medications but she is here for recurrent pain in her chronic location. She says she is eating and drinking normally and she says that she has had abdominal hysterectomy and denies . There is nothing new about the location of the pain the character of the pain or the symptoms and says that it is dull aching pain which is worse with certain movements Review of systems: As per history of present illness and below otherwise all systems reviewed and negative. Past medical history: As per history of present illness and as reviewed below otherwise noncontributory. Surgical history: As per history of present illness and as reviewed below otherwise noncontributory. Social history: No reported history of drug or alcohol abuse. Family history: As per history of present illness and as reviewed below otherwise noncontributory. Physical exam: General: Well-developed well-nourished female who is nontoxic and upon my entry into the room is asleep snoring. She is arousable and does speak very rapidly but is appropriate and answering questions. Vital signs are noted by me. She moves easily in the ED without distress she does speak very rapidly but on my evaluation I do not appreciate that she is having flight of ideas and she is able to focus on my questioning HEENT: Atraumatic, normocephalic, pupils reactive, negative for conjunctival pallor or scleral icterus, mucous membranes moist, throat clear, neck supple, nontender, trachea midline. Lungs: Clear to auscultation, breath sounds equal bilaterally, chest nontender. Heart: S1S2, regular rate and rhythm no overt murmurs Abdomen: Soft, nondistended, bowel sounds are slightly hypoactive and the patient takes my hand and indicates the area of her discomfort along the edges of the rectus abdominis muscle in the upper portion of the abdomen above the umbilicus although there is no soft tissue swelling defects deformities or hernias appreciated. There is minimal tenderness with mild palpation here but there is no rebound or guarding. Negative for masses or hepatosplenomegaly Pelvis: Stable nontender. Genitourinary: Deferred. Rectal: Deferred. Extremities: Atraumatic, full range of motion no pedal edema Neurovascular unremarkable. Neuro: Awake, alert, oriented. Cranial nerves II through XII unremarkable. Cerebellum unremarkable. Motor and sensory unremarkable throughout. Exam nonfocal. Diagnostics: Patient was offered a workup including laboratory evaluation and imaging as indicated from the lab tests but declines Therapeutics: Toradol IM When I discussed with the patient that I could repeat her blood work and then proceeded pending those results do imaging as indicated she is declining that and says that she has "been there done that". Her last imaging was an abdominal ultrasound and abdominal x-ray performed on January 23 here. She says she is not following up with anybody in particular in the clinic for this and says that it comes and goes and she would just like something to help with the pain. I have offered her Toradol and she is accepting of that. I stressed the need to follow- up with her provider regarding her new medications and she states understanding. Impression: Abdominal wall pain acute on chronic stable Definitive disposition and diagnosis as appropriate pending reevaluation and review of above. Generalized abdominal pain Pain Score (Numeric/FACES): 10 - Related Data Allergies Allergy/AdvReac Type Severity Reaction Status Date / Time hydrocodone Allergy Itching Verified 03/20/19 10:27 Home Meds: Home Meds ClonazePAM [KlonoPIN] 1 tab PO TID PRN 08/06/17 [History] Lisdexamfetamine Dimesylate [Vyvanse] 40 mg PO DAILY 08/06/17 [History] Omeprazole 40 mg PO DAILY 08/06/17 [History] Oxybutynin 2 tab PO TID 08/06/17 [History] cloNIDine [Catapres] 0.1 mg PO BID 08/06/17 [History] Cyclobenzaprine [Flexeril] 10 mg PO ASDIRECTED PRN 01/15/18 [History] Ondansetron HCl [Zofran] 4 mg PO ASDIRECTED 01/15/18 [History] OLANZapine [Zyprexa] 20 mg PO DAILY 03/26/19 [History] Past Medical History HEENT History: Reports: Other (See Below) Other HEENT History: has glasses but doesn't wear them Cardiovascular History: Reports: Hypertension Respiratory History: Reports: None Gastrointestinal History: Reports: Hepatitis Other Gastrointestinal History: complains of continuous abdominal pain dr. [place]. Genitourinary History: Reports: Other (See Below) Other Genitourinary History: Overactive bladder ANNEALER History: Reports: None Musculoskeletal History: Reports: Gout Neurological History: Reports: None Psychiatric History: Reports: ADD, Anxiety, Depression, PTSD, PTSD, Suicidal Ideation Endocrine/Metabolic History: Reports: None Hematologic History: Reports: None Immunologic History: Reports: None Oncologic (Cancer) History: Reports: None Dermatologic History: Reports: None - Infectious Disease History Infectious Disease History: Reports: Chicken Pox - Past Surgical History Head Surgeries/Procedures: Reports: None HEENT Surgical History: Reports: Oral Surgery Other HEENT Surgeries/Procedures: wisdom teeth removed Cardiovascular Surgical History: Reports: None Respiratory Surgical History: Reports: None GI Surgical History: Reports: Colonoscopy, EGD Female Surgical History: Reports: Hysterectomy Endocrine Surgical History: Reports: None Neurological Surgical History: Reports: None Musculoskeletal Surgical History: Reports: None Oncologic Surgical History: Reports: None Dermatological Surgical History: Reports: None Social & Family History - Family History Family Medical History: Noncontributory - Caffeine Use Caffeine Use: Reports: Coffee ED ROS GENERAL - Review of Systems Review Of Systems: ROS reveals no pertinent complaints other than HPI. ED EXAM, GENERAL - Physical Exam Exam: See Below (See dictation) Course - Vital Signs Last Recorded V/S: Last Vital Signs Temp 35.9 C 03/26/19 13:10 Pulse 107 H 03/26/19 13:10 Resp 20 03/26/19 13:10 BP 137/85 03/26/19 13:10 Pulse Ox 98 03/26/19 13:10 - Orders/Labs/Meds Orders: Active Orders 24 hr Category Date Time Status Ketorolac [Toradol] Med 03/26/19 13:27 Once 60 mg IM ONETIME ONE Medication Orders Ketorolac Tromethamine (Toradol) 60 mg IM ONETIME ONE Stop: 03/26/19 13:28 Meds: Medications Generic Name Dose Route Start Last Admin Trade Name Alex PRN Reason Stop Dose Admin Ketorolac Tromethamine 60 mg 03/26/19 13:27 Toradol IM 03/26/19 13:28 ONETIME ONE Departure - Departure Time of Disposition: 13:34 Disposition: Home, Self-Care 01 Condition: Good Clinical Impression: Abdominal wall pain - Discharge Information Additional Instructions: The following information is given to patients seen in the emergency department who are being discharged to home. This information is to outline your options for follow-up care. We provide all patients seen in our emergency department with a follow-up referral. The need for follow-up, as well as the timing and circumstances, are variable depending upon the specifics of your emergency department visit. If you don't have a primary care physician on staff, we will provide you with a referral. We always advise you to contact your personal physician following an emergency department visit to inform them of the circumstance of the visit and for follow-up with them and/or the need for any referrals to a consulting specialist. The emergency department will also refer you to a specialist when appropriate. This referral assures that you have the opportunity for followup care with a specialist. All of these measure are taken in an effort to provide you with optimal care, which includes your followup. Under all circumstances we always encourage you to contact your private physician who remains a resource for coordinating your care. When calling for followup care, please make the office aware that this follow-up is from your recent emergency room visit. If for any reason you are refused follow-up, please contact the [facility] emergency department at and ask to speak to the emergency department charge nurse. [address] [place] [place] [address] Please use [id number] medication for further discomfort and you may use ice or heat to area to assist with the pain management. Please keep your follow- up appointments as scheduled at [facility] as we discussed for further evaluation of your medications and return to ER as needed and as discussed - My Orders Last 24 Hours: My Active Orders 03/26/19 13:27 Ketorolac [Toradol] 60 mg IM ONETIME ONE - Assessment/Plan Last 24 Hours: My Active Orders 03/26/19 13:27 Ketorolac [Toradol] 60 mg IM ONETIME ONE
[2019-03-26 14:28] VITALS: BP 125/79
== END 2019-03-26 14:30 | disposition home or self-care (01) ==
LOC: MW.ED 13:04
DX: R10.9 Unspecified abdominal pain (principal); I10 Essential (primary) hypertension; F41.9 Anxiety disorder, unspecified; F32.9 Major depressive disorder, single episode, unspecified; F98.8 Other specified behavioral and emotional disorders with onset usually occurring in childhood and adolescence; F43.10 Post-traumatic stress disorder, unspecified; Z88.6 Allergy status to analgesic agent; Z79.899 Other long term (current) drug therapy
CPT/HCPCS: 96372; 99283; J2360